=== PATIENT | female | born 1995 | race Caucasian/White ===

== ENCOUNTER → 2022-11-24 10:00 | Outpatient (CLI) | payer OTHER, SELFPAY ==
[2022-11-24 11:57] LABS: Basophils % 0.3 % (0.1-2.0); Eosinophils # 0.1 K/mm3 (0.0-0.4); Eosinophils % 1.2 % (0.1-12.0); Hematocrit 40.7 % (37.0-47.0); Hemoglobin 13.1 g/dL (12.2-16.2); Lymphocytes % 31.2 % (10-50); Mean Corpuscular HGB Conc 32.2 g/dL (31.8-35.4); Mean Corpuscular Hemoglobin 30.9 pg (27.0-31.2); Mean Platelet Volume 8.6 fl (7.4-10.4); Monocytes # 0.5 K/mm3 (0.1-1.0); Monocytes % 8.4 % (1.7-9.3); Neutrophils # 3.8 K/mm3 (1.8-7.8); Platelet Count 323 K/mm3 (142-424); Red Blood Count 4.24 M/mm3 (4.20-5.40); Red Cell Distribution Width 12.9 % (11.5-17.5); White Blood Count 6.4 K/mm3 (4.8-10.8)
[2022-11-24 12:38] LABS: Alanine Aminotransferase 19 U/L (12-78); Albumin Level 4.2 g/dl (3.5-5.0); Albumin/Globulin Ratio 1.5 (1.1-1.8); Alkaline Phosphatase 82 U/L (38-126); Anion Gap 13.6 mEq/L (5-15); Aspartate Amino Transferase 22 U/L (14-36); Bilirubin,Total 0.3 mg/dl (0.2-1.3); Blood Urea Nitrogen 14 mg/dl (7-17); Calcium 9.4 mg/dl (8.4-10.2); Carbon Dioxide 28 mmol/L (22.0-30.0); Chloride 102 mmol/L (98-107); Chol/HDL Ratio 2.8 (1-3.5); Cholesterol 135 mg/dl (140-200); Estimated Glomerular Filt Rate 100 ml/min (>60); GFR (African American) 121 ML/MIN (>60); Globulin 2.8 g/dL (1.3-3.2); Glucose 79 mg/dl (74-100); HDL Cholesterol 48 mg/dl (40-60); Potassium 4.6 mmoL/L (3.5-5.1); Sodium 139 mmol/L (136-145); Triglycerides 91 mg/dl (30-150); VLDL Cholesterol 18 mg/dL (0-40)
[2022-11-24 12:49] LABS: Direct LDL Cholesterol 59.22 mg/dL (100-129)
[2022-11-24 12:55] LABS: 25-OH Vitamin D, Total 33.5 ng/mL (30-100)
[2022-11-24 13:08] LABS: Thyroid Stimulating Hormone 2.28 uIU/mL (0.465-4.68)
[2022-11-24 13:26] LABS: Vitamin B12 320 pg/mL (239-931)
== END ==
PROVIDERS: PCP Physician Assistant; Visit Provider Physician Assistant
DX: Z90.3 Acquired absence of stomach [part of] (principal); E66.9 Obesity, unspecified; Z68.34 Body mass index [BMI] 34.0-34.9, adult; Z79.899 Other long term (current) drug therapy
CPT/HCPCS: 80053; 80061; 82306; 82607; 84443; 85025

== ENCOUNTER 2023-03-01 15:28 | Emergency (ER) | payer BC, SELFPAY ==
[2023-03-01 15:33] VITALS: BP 136/75; PULSE 98; RESP 21; TEMP 36.8; O2SAT 100; BMI 33.3
--- NOTE | 2023-03-01 16:14 | PC.NURSE ---
paged Dr Madyson Lizama
--- NOTE | 2023-03-01 16:15 | PC.NURSE ---
Dr Lizama speaking with Dr John Lizama
--- NOTE | 2023-03-01 16:22 | HMH.EDGENADL ---
Discharge Plan Disposition Patient Disposition: Home, Self-Care Chief Complaint: Urogenital-Female Prescriptions Prescriptions: No Action No Known Home Medications bupropion HCl [Wellbutrin XL] 150 mg tablet extended release 24 hr 150 mg PO DAILY Qty: 30 2RF metformin 500 mg tablet extended release 24 hr 500 mg PO DAILY Qty: 30 2RF Referrals Follow up/Referrals: Ivonne Diez PA [Primary Care Provider] - See instructions Activity Restrictions/Add. Instructions Additional Instructions/Restrictions: Call your family doctor to establish care for this visit to the emergency department and schedule follow-up within 48 hours to ensure improvement. If you have any worsening of your condition or any other concerning signs or symptoms, return to the emergency department or your primary care doctor for further evaluation. Clinical Impressions Clinical Impression: Vaginal laceration Qualifiers: Vaginal laceration type: non-obstetric Perineal laceration presence: without perineal laceration Encounter type: initial encounter Foreign body presence: without foreign body Qualified Code(s): S31.41XA - Laceration without foreign body of vagina and vulva, initial encounter Instructions Patient Instructions: DI for Urinary Tract Infection (UTI), DI for Urinary Tract Infection in Children Discharge ED Provider: Luis Hutchins General Adult HPI General Chief complaint: Urogenital-Female Stated complaint: vaginal issue Time Seen by Provider: 03/01/23 15:35 History of Present Illness HPI narrative: 27-year-old female no relevant medical history presenting with vaginal laceration. Patient states that she was having intercourse on the evening of 02/28, sustained a laceration. It was bleeding throughout the day today, so called OB. OB stated they are able to see her in the office in the next 1 to 2 days, but patient became worried about it and came to the emergency department. Related Data Home Medications Medication Instructions Recorded Confirmed No Known Home Medications 02/25/23 02/25/23 Previous Rx's Medication Instructions Recorded bupropion HCl 150 mg 24 hr tablet, 150 mg PO DAILY #30 tabs 02/25/23 extended release (Wellbutrin XL) metformin 500 mg tablet,extended 500 mg PO DAILY #30 tabs 02/27/23 release 24 hr Allergies Allergy/AdvReac Type Severity Reaction Status Date / Time amoxicillin Allergy Anaphylaxis Verified 02/25/23 08:49 [facility] Disclaimer: The information contained in this section may have been updated after the patient was seen, as this information can be updated by other users. Medical History (Updated 03/01/23 @ 17:39 by Luis Hutchins MD) Anxiety and depression PCOS (polycystic ovarian syndrome) Surgical History (Updated 02/25/23 @ 12:23 by RUSH Archibald) H/O gastric sleeve Hx of appendectomy Hx of cholecystectomy Family History Brother Adopted Mother Anemia Diabetes Hyperlipidemia Hypertension Father Substance abuse Thyroid disorder Sister Substance abuse Father Substance abuse Family/Other Substance abuse Grandmother Diabetes FHx: mental illness Other Coronary artery disease Social History Smoking Status: Never smoker alcohol intake: never current occupational status: employed Travel in the last 8 weeks: None ROS Obtained: Yes All systems reviewed & no additional complaints except as documented Physical Exam General General appearance: alert and in no apparent distress Head Head exam: atraumatic and normocephalic Eye Eye exam: Present normal appearance, PERRL and EOMI ENT ENT exam: Present mucous membranes moist Neck Neck exam: Present normal inspection, full ROM and trachea midline Respiratory Respiratory exam: Absent respiratory distress, wheezes, stridor, accessory muscle use or p
[2023-03-01 16:30] LABS: Microscopic, Urine URINE MICROSCOPIC (MICROSCOPIC)
[2023-03-01 16:36] LABS: Appearance,Urine CLEAR (Clear); Blood, Urine 3+ (Negative); Color,Urine YELLOW (Yellow); Glucose,Urine (UA) Negative (Negative); Ketones,Urine TRACE (Negative); Leukocyte Esterase,Urine Negative (Negative); Nitrate,Urine Negative (Negative); PH,Urine 5.5 (5.0-8.5); Protein,Urine TRACE (Negative); Specific Gravity, Urine >= 1.030 (1.005-1.030); Urobilinogen,Urine 0.2 EU/dl (0.2)
[2023-03-01 16:40] LABS: Urine Pregnancy, HCG Qual. Negative (Negative)
[2023-03-01 16:43] LABS: Bilirubin,Urine 1+ (Negative)
[2023-03-01 17:00] LABS: Bacteria,Urine Trace /lpf
[2023-03-01 17:59] VITALS: BP 128/75; PULSE 90; RESP 17; TEMP 36.8; O2SAT 99
== END 2023-03-01 18:03 | disposition home or self-care (01) ==
PROVIDERS: Emergency Provider Emergency Medicine; PCP Physician Assistant
DX: S31.41XA Laceration without foreign body of vagina and vulva, initial encounter (principal); E28.2 Polycystic ovarian syndrome; X58.XXXA Exposure to other specified factors, initial encounter
CPT/HCPCS: 12002; 81001; 81025; 99283

== ENCOUNTER 2023-04-18 10:26 | Outpatient (CLI) | payer OTHER, BC, SELFPAY ==
[2023-04-18 15:42] LABS: HCG,Quantitative 416 mIU/ml (0-5.42)
[2023-04-19 08:12] LABS: Progesterone 19.7 ng/mL (.)
== END 2023-04-18 23:59 ==
PROVIDERS: PCP Physician Assistant; Visit Provider Obstetrics & Gynecology
DX: N92.6 Irregular menstruation, unspecified (principal); Z32.00 Encounter for pregnancy test, result unknown
CPT/HCPCS: 36415; 84144; 84702

== ENCOUNTER 2023-05-01 18:39 | Emergency (ER) | payer OTHER, BC, SELFPAY ==
[2023-05-01 18:55] VITALS: BP 128/65; PULSE 75; RESP 20; TEMP 36.9; O2SAT 100; BMI 34.8
--- NOTE | 2023-05-01 19:08 | ED_ITS ---
Discharge Plan Disposition Patient Disposition: Home, Self-Care Condition: Good Referrals Follow up/Referrals: Ivonne Diez PA [Primary Care Provider] - See instructions Activity Restrictions/Add. Instructions Additional Instructions/Restrictions: Follow up with your OBGYN Follow up with your Family Doctor if needed Straight to ER if any life threatening symptoms Clinical Impressions Clinical Impression: UTI symptoms Discharge ED Provider: Susy Evans [facility] HPI General Stated complaint: 6 weeks , Frequent urination,can't empty Mode of Arrival: Ambulatory Source of Information: Patient Limitations: No Limitations Time Seen by Provider: 05/01/23 19:08 Description of Symptoms (Recalled from Triage Doc. by RN): PATIENT C/O URINARY FREQUENCY, BODY ACHES, FEELING TIRED, AND LOWER BACK PAIN X 2 DAYS HEENT Symptoms (Recalled from RN notes): No Resp Symptoms (Recalled from RN notes): No Skin Symptoms (Recalled from RN notes): No MS Symptoms (Recalled from RN notes): No Functional Status (Recalled from RN notes): WNL History of Present Illness Provider Complaint: Patient states that she thinks she may have a UTI States that she has been having urinary urgency and frequency, achy like feeling on and off in her lower back States that she is 6wks OB Denies spotting States today she has had a little nausea but thinks that may be some morning sickness starting Related Data Allergies Allergy/AdvReac Type Severity Reaction Status Date / Time amoxicillin Allergy Anaphylaxis Verified 03/18/23 08:23 Worker's Comp Is this a Worker's Comp case?: No [facility] Dis[facility]: The information contained in this section may have been updated after the patient was seen, as this information can be updated by other users. Medical History (Updated 05/01/23 @ 19:15 by Susy Evans APRN) Anxiety and depression PCOS (polycystic ovarian syndrome) Vaginal odor Surgical History H/O gastric sleeve Hx of appendectomy Hx of cholecystectomy Family History Brother Adopted Mother Anemia Diabetes Hyperlipidemia Hypertension Father Substance abuse Thyroid disorder Sister Substance abuse Father Substance abuse Family/Other Substance abuse Grandmother Diabetes FHx: mental illness Other Coronary artery disease Social History Smoking Status: Never smoker alcohol intake: never current occupational status: employed Travel in the last 8 weeks: None ROS Obtained: Yes All systems reviewed & no additional complaints except as documented and Yes Systems reviewed as appropriate & no additional complaints except as documented Constitutional Constitutional: Reports system reviewed and no additional complaints, except as documented, Reports as per HPI and Denies fever(s) ENT Ears, Nose, Mouth, and Throat: Reports system reviewed and no additional complaints, except as documented and Reports as per HPI Cardiovascular Cardiovascular: Reports system reviewed and no additional complaints, except as documented and Reports as per HPI Respiratory Respiratory: Reports system reviewed and no additional complaints, except as documented and Reports as per HPI Gastrointestinal Gastrointestingal: Reports system reviewed and no additional complaints, except as documented, as per HPI and nausea; Denies abdominal pain, cramping or vomiting Genitourinary Female Genitourinary: Reports system reviewed and no additional complaints, except as documented, Reports as per HPI, Reports urinary frequency, Reports urinary urgency and Reports other (denies spotting) Musculoskeletal Musculoskeletal: Reports system reviewed and no additional complaints, except as documented, Reports as per HPI and Reports other (achy like feeling on and off in her lower back x 2 days ) Physical Exam General General appearance: alert and in no apparent distress ENT ENT exam: Present mucous membranes moist Respiratory Respiratory exam: Present normal lung sounds bilaterally; Absent respiratory distress or wheezes Cardiovascular Cardiovascular exam: Present regular rate, normal rhythm and normal heart sounds Back Exam Back 1 view image: 1. reports achy like feeling on and off for 2 days denies radiation of pain Denies loss of control of bowel or bladder Neurological Exam Neurological exam: Present alert, oriented X3 and normal gait Medical Decision Making Hero Inquiry Pt receiving controlled substance: No Hero was queried for this patient: No Vital Signs: 05/01/23 18:55 Temperature 98.4 F Temperature Source Oral Pulse Rate [Left Brachial] 75 Respiratory Rate 20 Blood Pressure [Left Arm] 128/65 Blood Pressure Mean [Left Arm] 86 Blood Pressure Source [Left Arm] Automatic Cuff Blood Pressure Position [Left Arm] Sitting 02 Sat by Pulse Oximetry 100 Oxygen Delivery Method Room Air Lab Data Lab results reviewed: Yes I reviewed the patient's lab results.
[2023-05-01 19:13] LABS: Apearance,Urine Clear (Clear); Bilirubin,Urine Negative (Negative); Blood, Urine Negative (Negative); Color,Urine Yellow (Yellow); Glucose,Urine (UA) Negative (Negative); Ketones,Urine Negative (Negative); PH,Urine 5.5 (5.0-8.5); Protein,Urine Negative (Negative); Specific Gravity, Urine 1.025 (1.005-1.030); UTC Leukocyte Esterase,Urine Negative (Negative); UTC Nitrate,Urine Negative (Negative); Urobilinogen,Urine 0.2 EU/dl (0.2)
[2023-05-01 19:19] VITALS: BP 128/65; PULSE 75; RESP 20; TEMP 36.9; O2SAT 100
== END 2023-05-01 19:26 | disposition home or self-care (01) ==
PROVIDERS: Emergency Provider Nurse Practitioner; PCP Physician Assistant
DX: O26.891 Other specified pregnancy related conditions, first trimester (principal); R35.0 Frequency of micturition; R39.15 Urgency of urination; M54.59 Other low back pain; Z3A.01 Less than 8 weeks gestation of pregnancy
CPT/HCPCS: 81003; 99203; 99212; G0463

== ENCOUNTER 2023-05-15 09:38 | Outpatient (CLI) | payer OTHER, BC, SELFPAY ==
[2023-05-15 09:57] LABS: Basophils # 0.1 K/mm3 (0-0.2); Basophils % 0.6 % (0.1-2.0); Eosinophils # 0.1 K/mm3 (0.0-0.4); Eosinophils % 0.8 % (0.1-12.0); Hematocrit 36.3 % (37.0-47.0); Hemoglobin 12.6 g/dL (12.2-16.2); Lymphocytes % 22.9 % (10-50); Mean Corpuscular HGB Conc 34.8 g/dL (31.8-35.4); Mean Corpuscular Hemoglobin 33.4 pg (27.0-31.2); Mean Corpuscular Volume 95.9 fl (81-99); Mean Platelet Volume 8.2 fl (7.4-10.4); Monocytes # 0.5 K/mm3 (0.1-1.0); Monocytes % 5.4 % (1.7-9.3); Neutrophils % 70.2 % (37.0-80.0); Platelet Count 328 K/mm3 (142-424); Red Blood Count 3.78 M/mm3 (4.20-5.40); Red Cell Distribution Width 13.7 % (11.5-17.5); White Blood Count 8.5 K/mm3 (4.8-10.8)
[2023-05-16 08:20] LABS: HIV Screen 4th Generation wRfx Non Reactive (Non Reactive)
[2023-05-16 11:50] LABS: Rapid Plasma Reagin Ab Titer Non Reactive titer (NonRea<1:1); Rubella Antibodies, IgG 0.97 index (Immune >0.99)
[2023-05-19 10:28] LABS: Hepatitis B Surface Antigen Negative; Hepatitis C Antibody Non Reactive
== END 2023-05-15 23:59 ==
PROVIDERS: PCP Physician Assistant; Visit Provider Obstetrics & Gynecology
DX: O36.80X0 Pregnancy with inconclusive fetal viability, not applicable or unspecified (principal); O26.891 Other specified pregnancy related conditions, first trimester; Z3A.08 8 weeks gestation of pregnancy
CPT/HCPCS: 36415; 85025; 86593; 86703; 86762; 86850; 87086; 87340; 87380; G0432

== ENCOUNTER 2023-07-13 20:02 | Emergency (ER) | payer BC, SELFPAY ==
[2023-07-13 20:04] VITALS: BP 125/76; PULSE 90; RESP 16; TEMP 36.9; O2SAT 99; BMI 34.8
--- NOTE | 2023-07-13 20:05 | ED_ITS ---
Discharge Plan Disposition Patient Disposition: Left Against Medical Advice Prescriptions Prescriptions: No Action Classic 28 mg iron- 800 mcg tablet 1 tab PO DAILY Referrals Follow up/Referrals: Ivonne Diez PA [Primary Care Provider] - See instructions Clinical Impressions Clinical Impression: Left against medical advice Instructions Patient Instructions: DI for Acute Abdominal Pain Discharge ED Provider: Cecil Niño General Adult HPI <RUSH Longoria - Last Filed: 07/14/23 14:07> General Chief complaint: Abdominal Pain Stated complaint: 16wks antipartum lower abd/back cramping Time Seen by Provider: 07/13/23 20:04 History of Present Illness HPI narrative: She presents for evaluation of abdominal cramping. Patient is 16 weeks . Patient also reports that today that she went to [employer] and was loading large pavers by herself. She did not experience any trauma or notice any injury at the time. However at some point later today she has began having cramping on the right side and right lower quadrant. She denies nausea vomiting diarrhea fever chills hemoptysis hematochezia melena hematemesis or vaginal spotting. Related Data Home Medications Medication Instructions Recorded Confirmed vits no.126-ferrous fum 1 tab PO DAILY 05/15/23 07/10/23 28 mg iron-folic acid 800 mcg tablet (Classic ) Allergies Allergy/AdvReac Type Severity Reaction Status Date / Time amoxicillin Allergy Anaphylaxis Verified 07/10/23 09:04 PFSH <RUSH Longoria - Last Filed: 07/14/23 14:07> [facility] Disclaimer: The information contained in this section may have been updated after the patient was seen, as this information can be updated by other users. Medical History Rubella non-immune status, antepartum GBS bacteriuria Initial urine culture positive for GBS. She will need abx in labor regardless of RV swab Nausea and vomiting during Constipation during Vaginal odor PCOS (polycystic ovarian syndrome) Anxiety and depression Surgical History Hx of cholecystectomy Hx of appendectomy H/O gastric sleeve Family History Brother Adopted Mother Anemia Diabetes Hyperlipidemia Hypertension Father Substance abuse Thyroid disorder Sister Substance abuse Father Substance abuse Family/Other Substance abuse Grandmother Diabetes FHx: mental illness Other Coronary artery disease Social History Smoking Status: Never smoker alcohol intake: never current occupational status: employed Travel in the last 8 weeks: None <RUSH Longoria - Last Filed: 07/14/23 14:07> ROS Obtained: Yes Systems reviewed as appropriate & no additional complaints except as documented Physical Exam <RUSH Longoria - Last Filed: 07/14/23 14:07> General General appearance: alert and in no apparent distress Respiratory Respiratory exam: Present normal lung sounds bilaterally Cardiovascular Cardiovascular exam: Present regular rate and normal rhythm Abdominal Exam Abdominal exam: Present soft, tenderness (Patient is mildly tender to palpation in the right flank right upper and lower quadrants but no rebound or guarding no rigidity.) and normal bowel sounds Extremities Exam Extremities exam: Present normal inspection and full ROM Back Exam Back exam: Present normal inspection, full ROM and tenderness (Tender in the right-sided paraspinal musculature without deformity or neuropathic or radicular signs) Neurological Exam Neurological exam: Present alert and oriented X3 Medical Decision Making <RUSH Longoria - Last Filed: 07/14/23 14:07> Medical Records Medical records reviewed: Yes I reviewed the patient's medical records. Hero Inquiry Pt receiving controlled substance: No Vital Signs: 07/13/23 20:04 07/13/23 21:20 Temperature 98.4 F 98.4 F Temperature Source Oral Oral Pulse Rate 81 Pulse Rate [Right] 90 Respiratory Rate 16 16 Blood Pressure 119/81 Blood Pressure [Right Arm] 125/76 Blood Pressure Mean [Right Arm] 92 02 Sat by Pulse Oximetry 99 Oxygen Delivery Method Room Air Lab Data Lab results reviewed: Yes I reviewed the patient's lab results. Lab Results 07/13/23 20:45: Urine Color Yellow, Urine Appearance Clear, Urine pH 6.0, Ur Specific [place] 1.020, Urine Protein Negative, Urine Glucose (UA) Negative, Urine Ketones Negative, Urine Blood Negative, Urine Nitrate Negative, Urine Bilirubin Negative, Urine Urobilinogen 0.2, Ur Leukocyte Esterase Negative, Urine RBC None, Urine WBC Occasional, Ur Squamous Epith Cells 5-10, Urine Bacteria None Orders (Tests/Meds): ED MEDICATIONS Discontinued Medications Generic Name Dose Route Start Last Admin Trade Name Eduin PRN Reason Stop Dose Admin Acetaminophen 1,000 mg 07/13/23 20:21 Acetaminophen 1,000mg/100ml Vial IV 07/13/23 20:22 ONCE ONE Lactated Ringer's 1,000 mls @ 999 mls/hr 07/13/23 20:21 Lactated Ringer's 1000 Ml Bag IV 07/13/23 21:21 .Q1H1M ONE ORDERS Category Date Time Status UA [Urinalysis and Microscopic] Stat Lab 07/13/23 20:45 Completed Medical Decision Narrative: In summary patient is a 28-year-old female 16 weeks who presents to the emergency department for evaluation of abdominal pain. Patient is hemodynamically stable upon arrival, afebrile. Physical exam is remarkable for tenderness to palpation in both the right flank and right upper and lower quadrants however there is no peritoneal signs. Differential diagnosis includes muscle spasm versus muscle strain versus cholelithiasis versus acute appendicitis versus gastroenteritis versus kidney stone versus urinary tract infection versus pyelonephritis versus possible gynecological cramping. Initial workup will be conducted with hematologic labs urinalysis hCG. Initial interventions include Tylenol and fluid bolus. Unfortunately patient left AMA before her initial workup and treatments were initiated due to social issues. I did have an interactive conversation with the patient about the risks of leaving AMA along with conditions to return. Patient verbalized understanding and agreement and elected to leave AMA regardless. She plans to follow-up with her marketing production manager in the morning. <Cecil Niño, DO - Last Filed: 07/18/23 09:52> Vital Signs: 07/13/23 20:04 07/13/23 21:20 Temperature 98.4 F 98.4 F Temperature Source Oral Oral Pulse Rate 81 Pulse Rate [Right] 90 Respiratory Rate 16 16 Blood Pressure 119/81 Blood Pressure [Right Arm] 125/76 Blood Pressure Mean [Right Arm] 92 02 Sat by Pulse Oximetry 99 Oxygen Delivery Method Room Air Lab Data Lab Results 07/13/23 20:45: Urine Color Yellow, Urine Appearance Clear, Urine pH 6.0, Ur Specific [place] 1.020, Urine Protein Negative, Urine Glucose (UA) Negative, Urine Ketones Negative, Urine Blood Negative, Urine Nitrate Negative, Urine Bilirubin Negative, Urine Urobilinogen 0.2, Ur Leukocyte Esterase Negative, Urine RBC None, Urine WBC Occasional, Ur Squamous Epith Cells 5-10, Urine Bacteria None Orders (Tests/Meds): ED MEDICATIONS Discontinued Medications Generic Name Dose Route Start Last Admin Trade Name Eduin PRN Reason Stop Dose Admin Acetaminophen 1,000 mg 07/13/23 20:21 Acetaminophen 1,000mg/100ml Vial IV 07/13/23 20:22 ONCE ONE Lactated Ringer's 1,000 mls @ 999 mls/hr 07/13/23 20:21 Lactated Ringer's 1000 Ml Bag IV 07/13/23 21:21 .Q1H1M ONE ORDERS Category Date Time Status UA [Urinalysis and Microscopic] Stat Lab 07/13/23 20:45 Completed Medical Decision Narrative: In summary patient is a 28-year-old female 16 weeks who presents to the emergency department for evaluation of abdominal pain. Patient is hemodynamically stable upon arrival, afebrile. Physical exam is remarkable for tenderness to palpation in both the right flank and right upper and lower quadrants however there is no peritoneal signs. Differential diagnosis includes muscle spasm versus muscle strain versus cholelithiasis versus acute appendicitis versus gastroenteritis versus kidney stone versus urinary tract infection versus pyelonephritis versus possible gynecological cramping. Initial workup will be conducted with hematologic labs urinalysis hCG. Initial interventions include Tylenol and fluid bolus. Unfortunately patient left AMA before her initial workup and treatments were initiated due to social issues. I did have an interactive conversation with the patient about the risks of leaving AMA along with conditions to return. Patient verbalized understanding and agreement and elected to leave AMA regardless. She plans to follow-up with her marketing production manager in the morning. I was consulted by the AARON, and we discussed the complexity of the problems being addressed. I approved the treatment and management plan for this patient's care in the Emergency Department, thus performing a substantive portion of the medical decision making. Cecil Niño, DO Critical Care <RUSH Longoria - Last Filed: 07/14/23 14:07> Critical Care Time Critical Care Time: No
[2023-07-13 21:20] VITALS: BP 119/81; PULSE 81; RESP 16; TEMP 36.9; O2SAT 99
[2023-07-13 21:21] LABS: Microscopic, Urine URINE MICROSCOPIC (MICROSCOPIC)
[2023-07-13 21:27] LABS: Appearance,Urine CLEAR (Clear); Bilirubin,Urine Negative (Negative); Blood, Urine Negative (Negative); Color,Urine YELLOW (Yellow); Glucose,Urine (UA) Negative (Negative); Ketones,Urine Negative (Negative); Leukocyte Esterase,Urine Negative (Negative); Nitrate,Urine Negative (Negative); Protein,Urine Negative (Negative); Urobilinogen,Urine 0.2 EU/dl (0.2)
[2023-07-13 22:05] LABS: WBC,Urine Occasional #/hpf (0-3)
== END 2023-07-13 21:21 | disposition left against medical advice (07) ==
PROVIDERS: Physician Assistant; Emergency Provider Emergency Medicine; PCP Physician Assistant
DX: O26.892 Other specified pregnancy related conditions, second trimester (principal); R10.819 Abdominal tenderness, unspecified site; Z3A.16 16 weeks gestation of pregnancy
CPT/HCPCS: 81001; 96361; 96374; 99281; 99284

== ENCOUNTER 2023-08-06 15:18 | Outpatient (CLI) | payer BC, SELFPAY ==
--- NOTE | 2023-08-06 15:18 | US_ITS ---
PROCEDURE: US OB /MATERNAL DETAIL CLINICAL INDICATION: 20 week OB Complete -Anatomy Scan COMPARISON: No exams were available for comparison FINDINGS: Transabdominal sonographic images of the pelvis were obtained. From her established due date she is 19 weeks 6 days. Single viable intrauterine gestation. Breech position. Placenta: Anteriorplacenta grade 1. There is an average amount of fluid. The cervix appears satisfactory. Closed and measuring 2.9 cm in length. Complete survey performed and was unremarkable on the submitted images as in PACS. No discrete anomalies identified on survey imaging by technologist. Active fetus. Three-vessel cord with satisfactory umbilical cord insertion. 4- chamber heart noted. Situs, aortic arch, LVOT, RVOT, three-vessel view appear normal. Survey of brain & ventricles Unremarkable. Cerebellum, thalamus, choroid plexus, cisterna magna appear normal. Face and neck survey unremarkable. Profile, nasion, lips and nose appeared normal. Diaphragm and chest views unremarkable. Abdomen: Both kidneys noted and unremarkable. Stomach and bladder noted and satisfactory. Spine: Difficult examination due to position. Survey of the spine satisfactory with no anomalies identified nor imaged. Cervical, thoracic, lower spine appear normal. Both arms and legs noted. Amniotic Fluid: Adequate. Measurements: Average ultrasound age 19weeks 6days. Estimated due date by ultrasound age 1012/25/2023. Estimated weight 322g BPD = 19weeks 3days HC = 19weeks 3days AC = 20weeks 1day FL = 20weeks 0 days Growth Percentile= 50 Heart Rate = 152bpm Cerebellum = 20weeks 0 days Humerus = 19weeks 6days HC/AC is 1.13 FL/BPD is 0.73 FL/AC is 0.22 IMPRESSION: 1. Viable fetus in the breech presentation with an anterior placenta grade 1. 2. The fluid is within normal limits. 3. Anatomical scan appears normal. Would suggest repeat spine views in 2 weeks due to position. 4. biometry is consistent with a dates. Dictated by: Behzad Morales MD 08/06/2023 16:37 Behzad Morales MD in [place] 08/06/2023 16:37
== END 2023-08-06 23:59 | disposition home or self-care (01) ==
LOC: RAD 15:18
PROVIDERS: PCP Physician Assistant; Visit Provider Obstetrics & Gynecology
DX: O26.892 Other specified pregnancy related conditions, second trimester (principal); Z3A.20 20 weeks gestation of pregnancy; Z36.3 Encounter for antenatal screening for malformations
CPT/HCPCS: 76811

== ENCOUNTER 2023-08-24 14:23 | Outpatient (CLI) | payer BC, SELFPAY ==
--- NOTE | 2023-08-24 14:24 | US_ITS ---
PROCEDURE: US OB FOLLOW UP CLINICAL INDICATION: limited views of spine on anatomy ultrasound COMPARISON: US US OB /MATERNAL DETAIL from 08/06/2023 FINDINGS: Transabdominal sonographic images of the pelvis were obtained. The following parameters are obtained: From her established due date she is 22weeks 3days Viable fetus in the breech presentation with an anterior placenta grade 1. The cervix measures 3.8 cm. heart rate: 147bpm bpm. Amniotic fluid index: Appears normal, MVP 4.78 cm. No obvious anomalies evident. Stomach, bladder, kidneys, three-vessel cord, four chamber heart appear normal. Views of the spine were normal with normal appearing cervical, thoracic and lower spine. IMPRESSION: 1. Viable fetus in the breech presentation with an anterior placenta grade 1. 2. The fluid is within normal limits. MVP 4.78 cm. 3. Detailed views of the spine were seen and appear normal. 4. The rest of the limited anatomical scan appears normal. Dictated by: Behzad Morales MD 08/24/2023 19:02 Behzad Morales MD in [place] 08/24/2023 19:02
== END 2023-08-24 23:59 | disposition home or self-care (01) ==
LOC: RAD 14:24
PROVIDERS: PCP Physician Assistant; Visit Provider Obstetrics & Gynecology
DX: Z3A.22 22 weeks gestation of pregnancy; Z34.92 Encounter for supervision of normal pregnancy, unspecified, second trimester
CPT/HCPCS: 76816

== ENCOUNTER 2023-09-21 18:29 | Outpatient (CLI) | payer BC, SELFPAY ==
[2023-09-21 18:43] VITALS: BMI 37.1
[2023-09-21 18:47] LABS: Microscopic, Urine URINE MICROSCOPIC (MICROSCOPIC)
[2023-09-21 18:51] LABS: Appearance,Urine CLEAR (Clear); Bilirubin,Urine Negative (Negative); Blood, Urine Negative (Negative); Color,Urine YELLOW (Yellow); Glucose,Urine (UA) Negative (Negative); Ketones,Urine 1+ (Negative); Leukocyte Esterase,Urine Negative (Negative); Nitrate,Urine Negative (Negative); Protein,Urine Negative (Negative); Specific Gravity, Urine >= 1.030 (1.005-1.030); Urobilinogen,Urine 0.2 EU/dl (0.2)
[2023-09-21 19:00] VITALS: BP 125/68; PULSE 89; RESP 17; TEMP 36.9; O2SAT 100; BMI 37.1
[2023-09-21 19:04] LABS: Bacteria,Urine Trace /lpf
[2023-09-21 19:08] LABS: Amphetamine/Metha Screen,Urine Negative ng/ml (<1000); Benzodiazepines Screen,Urine Negative ng/ml (<200)
[2023-09-21 19:09] LABS: Barbiturates Screen,Urine Negative ng/ml (<200)
[2023-09-21 19:10] LABS: Cannabinoid Screen,Urine Negative ng/ml (<50); Cocaine Screen,Urine Negative ng/ml (<300)
[2023-09-21 19:11] LABS: Methadone Screen,Urine Negative ng/ml (<300)
[2023-09-21 19:12] LABS: Opiate Screen,Urine Negative ng/ml (<300)
[2023-09-21 19:13] LABS: Phencyclidine Screen,Urine Negative ng/ml (<25)
[2023-09-21] MEDS: LACTATED RINGERS 1000ML 1,000 ML 999 ML IV ×2 (19:23→20:55)
[2023-09-21 19:42] LABS: Basophils % 0.2 % (0.1-2.0); Eosinophils # 0.2 K/mm3 (0.0-0.4); Hematocrit 32.5 % (37.0-47.0); Lymphocytes # 2.1 K/mm3 (0.7-4.5); Lymphocytes % 21.7 % (10-50); Mean Corpuscular HGB Conc 33.8 g/dL (31.8-35.4); Mean Corpuscular Hemoglobin 31.7 pg (27.0-31.2); Mean Corpuscular Volume 93.9 fl (81-99); Mean Platelet Volume 8.2 fl (7.4-10.4); Monocytes # 0.6 K/mm3 (0.1-1.0); Monocytes % 5.8 % (1.7-9.3); Neutrophils # 6.7 K/mm3 (1.8-7.8); Neutrophils % 70.4 % (37.0-80.0); Platelet Count 329 K/mm3 (142-424); Red Blood Count 3.46 M/mm3 (4.20-5.40); Red Cell Distribution Width 13.6 % (11.5-17.5); White Blood Count 9.6 K/mm3 (4.8-10.8)
[2023-09-21 19:53] LABS: Alanine Aminotransferase 21 U/L (12-78); Albumin Level 3.4 g/dl (3.5-5.0); Albumin/Globulin Ratio 1.1 (1.1-1.8); Alkaline Phosphatase 81 U/L (38-126); Anion Gap 7.9 mEq/L (5-15); Aspartate Amino Transferase 24 U/L (14-36); Bilirubin,Total 0.4 mg/dl (0.2-1.3); Blood Urea Nitrogen 12 mg/dl (7-17); Carbon Dioxide 24 mmol/L (22.0-30.0); Chloride 105 mmol/L (98-107); Creatinine Clearance Estimated 273 mL/min (50-200); Estimated Glomerular Filt Rate 146 ml/min (>60); GFR (African American) 177 ML/MIN (>60); Globulin 3.1 g/dL (1.3-3.2); Glucose 85 mg/dl (74-100); Potassium 3.9 mmoL/L (3.5-5.1); Sodium 133 mmol/L (136-145); Total Protein,Serum 6.5 g/dl (6.3-8.2)
== END 2023-09-21 21:55 | disposition home or self-care (01) ==
LOC: OBOUT 18:31 → OB 18:35
PROVIDERS: PCP Physician Assistant; Visit Provider Obstetrics & Gynecology
DX: O26.892 Other specified pregnancy related conditions, second trimester (principal); Z3A.26 26 weeks gestation of pregnancy; R42 Dizziness and giddiness
CPT/HCPCS: 80053; 80307; 81001; 85025; G0463; J7120

== ENCOUNTER 2023-10-02 08:49 | Outpatient (CLI) | payer BC, SELFPAY ==
[2023-10-02 09:27] LABS: Basophils % 0.4 % (0.1-2.0); Eosinophils # 0.1 K/mm3 (0.0-0.4); Eosinophils % 0.9 % (0.1-12.0); Hemoglobin 10.9 g/dL (12.2-16.2); Lymphocytes # 1.4 K/mm3 (0.7-4.5); Lymphocytes % 21.2 % (10-50); Mean Corpuscular HGB Conc 36.4 g/dL (31.8-35.4); Mean Corpuscular Hemoglobin 34.5 pg (27.0-31.2); Mean Corpuscular Volume 94.9 fl (81-99); Mean Platelet Volume 8.2 fl (7.4-10.4); Monocytes # 0.4 K/mm3 (0.1-1.0); Monocytes % 6.4 % (1.7-9.3); Neutrophils # 4.8 K/mm3 (1.8-7.8); Neutrophils % 71.1 % (37.0-80.0); Platelet Count 308 K/mm3 (142-424); Red Blood Count 3.16 M/mm3 (4.20-5.40); Red Cell Distribution Width 13.6 % (11.5-17.5); White Blood Count 6.7 K/mm3 (4.8-10.8)
[2023-10-02 09:35] LABS: Glucose,Fasting 84 mg/dl (74-100)
[2023-10-02 11:40] LABS: Glucose 1 Hour 53 mg/dL (74-100)
== END 2023-10-02 23:59 | disposition home or self-care (01) ==
LOC: LAB 08:49
PROVIDERS: PCP Physician Assistant; Visit Provider Obstetrics & Gynecology
DX: Z34.90 Encounter for supervision of normal pregnancy, unspecified, unspecified trimester (principal)
CPT/HCPCS: 36415; 82951; 85025

== ENCOUNTER 2023-10-26 08:34 | Emergency (ER) | payer BC, SELFPAY ==
[2023-10-26 08:55] VITALS: BP 110/71; PULSE 79; RESP 20; TEMP 36.5; O2SAT 100; BMI 36.4
--- NOTE | 2023-10-26 09:17 | ED_ITS ---
Discharge Plan Disposition Patient Disposition: Home, Self-Care Condition: Good Prescriptions Prescriptions: No Action Classic 28 mg iron- 800 mcg tablet 1 tab PO DAILY bupropion HCl [Wellbutrin XL] 150 mg tablet extended release 24 hr 150 mg PO DAILY Qty: 30 2RF ondansetron 4 mg tablet,disintegrating 4 mg PO Q6H PRN (Reason: nausea and vomiting) Qty: 30 0RF Referrals Follow up/Referrals: Ivonne Diez PA [Primary Care Provider] - See instructions Activity Restrictions/Add. Instructions Additional Instructions/Restrictions: *Monitor Temp, Over the counter Motrin or Tylenol as directed/as needed Tylenol every 4 hours and Motrin every 6 hours (as long as your family doctor has told you that you can take it) for fever or pain. and straight to ER if unable to lower temp less than 101.0 after medication given *Warm salt water gargles may help to soothe the throat *Throat Lozenges? *Warm fluids like tea with honey may help to soothe the throat? *Sleep elevated *Humidifier/Vaporizer Your throat swab was sent for culture. Those results are typically sent to your primary care. Be sure to follow up in 2-3 days with your family doctor/primary care physician if no improvement so they can review those result and treat if necessary. If you don?t have a primary care doctor, I recommend you get one but in the mean time, you will have to return to a walk in clinic Follow up IMMEDIATELY for new or worsening symptoms or no Noticeable improvement over the next 48-72 hours. 911 for difficulty breathing or swallowing Clinical Impressions Clinical Impression: Viral upper respiratory infection Stand Alone Forms Stand Alone Forms: Work/School Release Instructions Patient Instructions: DI for Viral Upper Respiratory Infection -- Adult, Sore Throat Print Language Print Language: Barbadian Discharge ED Provider: Susy Evans [facility] General Stated complaint: sore throat, body aches, headache Mode of Arrival: Ambulatory Source of Information: Patient Limitations: No Limitations Time Seen by Provider: 10/26/23 09:17 Description of Symptoms (Recalled from Triage Doc. by RN): PATIENT C/O SORE THROAT, HEADACHE, BODY ACHES, LOW-GRADE FEVER, HEAD AND CHEST CONGESTION, AND EAR PAIN THAT STARTED YESTERDAY HEENT Symptoms (Recalled from RN notes): Yes Resp Symptoms (Recalled from RN notes): Yes Skin Symptoms (Recalled from RN notes): No MS Symptoms (Recalled from RN notes): No Functional Status (Recalled from RN notes): WNL History of Present Illness Provider Complaint: Patient states that she is 31wks OB States that she started feeling bad yesterday with body aches, sore throat, headache, chills itchy like feeling in her ears and nasal congestion States that she woke up in the middle of night feeling like she was swallowing glass worried that she may have strep throat or flu so she came in to get tested Related Data Home Medications ?Medication ?Instructions ?Recorded ?Confirmed vits no.126-ferrous fum 1 tab PO DAILY 05/15/23 10/19/23 28 mg iron-folic acid 800 mcg tablet (Classic ) Allergies Allergy/AdvReac Type Severity Reaction Status Date / Time amoxicillin Allergy Anaphylaxis Verified 10/19/23 16:06 Worker's Comp Is this a Worker's Comp case?: No PFSH PFS Disclaimer: The information contained in this section may have been updated after the patient was seen, as this information can be updated by other users. Medical History (Updated 10/26/23 @ 09:22 by Susy Evans APRN) Anemia affecting Depression affecting Vaginal discharge during Rubella non-immune status, antepartum GBS bacteriuria Nausea and vomiting during Constipation during PCOS (polycystic ovarian syndrome) Anxiety and depression Surgical History Hx of cholecystectomy Hx of appendectomy H/O gastric sleeve Family History Brother Adopted Mother Anemia Diabetes Hyperlipidemia Hypertension Father Substance abuse Thyroid disorder Sister Substance abuse Father Substance abuse Family/Other Substance abuse Grandmother Diabetes FHx: mental illness Other Coronary artery disease Social History Smoking Status: Never smoker alcohol intake: never current occupational status: employed Travel in the last 8 weeks: None ROS Obtained: Yes All systems reviewed & no additional complaints except as documented and Yes Systems reviewed as appropriate & no additional complaints except as documented Constitutional Constitutional: Reports system reviewed and no additional complaints, except as documented, Reports as per HPI, Reports body ache, Reports chills and Reports headache(s) ENT Ears, Nose, Mouth, and Throat: Reports system reviewed and no additional complaints, except as documented, Reports as per HPI, Reports otalgia, Reports headache(s), Reports nasal congestion, Reports nasal discharge and Reports sore throat Cardiovascular Cardiovascular: Reports system reviewed and no additional complaints, except as documented and Reports as per HPI Respiratory Respiratory: Reports system reviewed and no additional complaints, except as documented and Reports as per HPI Gastrointestinal Gastrointestingal: Reports system reviewed and no additional complaints, except as documented and as per HPI Neurologic Neurologic: Reports headache(s) Physical Exam General General appearance: alert and in no apparent distress ENT ENT exam: Present mucous membranes moist Expanded ENT Exam TM/Canal exam: Bilateral TM: bulging (clear) Throat exam: Present tonsillar erythema (mild) Chest Chest inspection: Present normal inspection and symmetric chest wall rise Respiratory Respiratory exam: Present normal lung sounds bilaterally; Absent respiratory distress or wheezes Cardiovascular Cardiovascular exam: Present regular rate, normal rhythm and normal heart sounds Neurological Exam Neurological exam: Present alert, oriented X3 and normal gait Medical Decision Making Hero Inquiry Pt receiving controlled substance: No Hero was queried for this patient: No Vital Signs: 10/26/23 08:55 Temperature 97.7 F Temperature Source Oral Pulse Rate [Left Brachial] 79 Respiratory Rate 20 Blood Pressure [Left Arm] 110/71 Blood Pressure Mean [Left Arm] 84 Blood Pressure Source [Left Arm] Automatic Cuff Blood Pressure Position [Left Arm] Sitting 02 Sat by Pulse Oximetry 100 Oxygen Delivery Method Room Air Lab Data Lab results reviewed: Yes I reviewed the patient's lab results.
[2023-10-26 09:19] LABS: UTC Strep Screen (Rapid) Negative (Negative)
[2023-10-26 09:20] LABS: UTC Influenza A Antigen Negative (Negative); UTC Influenza B Antigen Negative (Negative)
[2023-10-26 09:28] VITALS: BP 110/71; PULSE 79; RESP 20; TEMP 36.5; O2SAT 100
== END 2023-10-26 09:32 | disposition home or self-care (01) ==
PROVIDERS: Emergency Provider Nurse Practitioner; PCP Physician Assistant
DX: O26.893 Other specified pregnancy related conditions, third trimester (principal); R51.9 Headache, unspecified; R07.0 Pain in throat; M79.18 Myalgia, other site; R68.83 Chills (without fever); R09.81 Nasal congestion; Z3A.31 31 weeks gestation of pregnancy; F32.A Depression, unspecified; F41.9 Anxiety disorder, unspecified; E28.2 Polycystic ovarian syndrome
CPT/HCPCS: 87804; 87880; 99212; 99213; G0463

== ENCOUNTER 2023-10-26 16:00 | Outpatient (CLI) | payer BC, SELFPAY ==
[2023-10-26 16:55] LABS: Coronavirus 19, PCR Not Detected (NotDetected); Influenza A, PCR Not Detected (NotDetected); Influenza B, PCR Not Detected (NotDetected)
== END 2023-10-26 23:59 | disposition home or self-care (01) ==
LOC: LAB.DROPOF 10-27 15:17
PROVIDERS: PCP Physician Assistant; Visit Provider Physician Assistant
DX: J06.9 Acute upper respiratory infection, unspecified (principal)
CPT/HCPCS: 87636

== ENCOUNTER 2023-11-26 14:16 | Outpatient (CLI) | payer BC, SELFPAY ==
[2023-11-26 14:41] VITALS: BMI 36.3
[2023-11-26 14:48] VITALS: BP 133/78; PULSE 88; RESP 16; O2SAT 98; BMI 36.3
[2023-11-26 15:00] LABS: Fetal Membrane Rupture (Rapid) Negative (Negative)
== END 2023-11-26 15:46 | disposition home or self-care (01) ==
LOC: OBOUT 14:17 → OB 14:18
PROVIDERS: PCP Physician Assistant; Visit Provider Obstetrics & Gynecology
DX: O42.913 Preterm premature rupture of membranes, unspecified as to length of time between rupture and onset of labor, third trimester (principal); Z3A.35 35 weeks gestation of pregnancy
CPT/HCPCS: 84112; G0463

== ENCOUNTER 2023-12-02 07:44 | Inpatient (IN) | payer BC, SELFPAY ==
[2023-12-02 06:04] VITALS: BP 139/82; BP 158/93; PULSE 92; RESP 18; RESP 21; TEMP 36.8; O2SAT 100; BMI 36.6
[2023-12-02 06:38] LABS: Microscopic, Urine URINE MICROSCOPIC (MICROSCOPIC)
[2023-12-02 07:03] LABS: Appearance,Urine CLEAR (Clear); Bilirubin,Urine Negative (Negative); Blood, Urine 1+ (Negative); Color,Urine YELLOW (Yellow); Glucose,Urine (UA) Negative (Negative); Ketones,Urine Negative (Negative); Leukocyte Esterase,Urine 1+ (Negative); Nitrate,Urine Negative (Negative); PH,Urine 6.5 (5.0-8.5); Protein,Urine Negative (Negative); Specific Gravity, Urine <= 1.005 (1.005-1.030); Urobilinogen,Urine 0.2 EU/dl (0.2)
[2023-12-02 07:13] LABS: Fetal Membrane Rupture (Rapid) Positive (Negative)
[2023-12-02 07:24] VITALS: BP 126/82
[2023-12-02 07:28] LABS: RBC,Urine Occasional #/hpf (0-3); Squamous Epithelial Cell,Urine Occasional #/hpf (0-5); WBC,Urine Occasional #/hpf (0-3)
[2023-12-02] MEDS: VANCOMYCIN HCL 2,000 MG in 0.9 % SODIUM CHLORIDE 250 ML 125 MG IV ×2 (08:32→16:39)
[2023-12-02] MEDS: LACTATED RINGERS 1000ML 1,000 ML 500 ML IV (08:32)
[2023-12-02] MEDS: DEXTROSE 5%-LACTATED RINGERS 1,000 ML 125 ML IV ×2 (08:32→16:35)
[2023-12-02 08:33] LABS: Amphetamine/Metha Screen,Urine Negative ng/ml (<1000)
[2023-12-02 08:34] LABS: Barbiturates Screen,Urine Negative ng/ml (<200); Benzodiazepines Screen,Urine Negative ng/ml (<200)
--- NOTE | 2023-12-02 08:34 | P.CONPHA_ITS ---
Pharmacy Intervention Comments: MEDICATION RECONCILIATION COMPLETED ON PATIENT USING EXTERNAL FILL HISTORY FROM PHARMACY AND LIST FROM WEB COMMUNICATIONS SPECIALIST OFFICE. -GINNY TAPIAD
--- NOTE | 2023-12-02 08:34 | HMH.PHAINT1 ---
Pharmacy Intervention Comments: MEDICATION RECONCILIATION COMPLETED ON PATIENT USING EXTERNAL FILL HISTORY FROM PHARMACY AND LIST FROM SAFE EXPERT OFFICE. -GINNY TAPIAD
[2023-12-02 08:35] LABS: Cannabinoid Screen,Urine Negative ng/ml (<50)
[2023-12-02 08:36] LABS: Cocaine Screen,Urine Negative ng/ml (<300); Methadone Screen,Urine Negative ng/ml (<300)
[2023-12-02 08:37] LABS: Opiate Screen,Urine Negative ng/ml (<300)
[2023-12-02 08:38] LABS: Phencyclidine Screen,Urine Negative ng/ml (<25)
--- NOTE | 2023-12-02 08:50 | EXP.OB.APHP ---
OB - H&P: HPI Antepartum History of Present Illness Chief complaint: Decreased movement, contractions History of present illness: Ms Dalia Zayas is a 28 yo at 36w5d who presents to [facility] L&D with complaint of decreased movement this morning and continued tightening of her abdomen. She admits she had intercourse last night. Upon arrival to L&D cervix was 4/75/-2. She went to the bathroom to pee and started leaking fluid. Amnisure positive at 0653 this morning. She has had good care. complicated by maternal obestiy, anxiety/depression and anemia. She had GBS bactiuria on initial urine culture. History of Present Criteria for establishing EDC:: LMP confirmed by 1st trimester US care: good care Ultrasounds: normal mid trimester US Obstetrical complications: none Medical complications: none Labs Blood type: O (+) positive Rubella: nonimmune RPR/VDRL: nonreactive GBS status: positive HBsAG: negative PFSH PFSH Disclaimer: The information contained in this section may have been updated after the patient was seen, as this information can be updated by other users. Medical History (Updated 12/02/23 @ 13:08 by Tiffany Roberson DO) 36 weeks gestation of premature rupture of membranes Maternal obesity affecting , antepartum Heartburn during Anemia affecting Depression affecting Vaginal discharge during Rubella non-immune status, antepartum GBS bacteriuria Nausea and vomiting during Constipation during PCOS (polycystic ovarian syndrome) Anxiety and depression Surgical History Hx of cholecystectomy Hx of appendectomy H/O gastric sleeve Family History Brother Adopted Mother Anemia Diabetes Hyperlipidemia Hypertension Father Substance abuse Thyroid disorder Sister Substance abuse Father Substance abuse Family/Other Substance abuse Grandmother Diabetes FHx: mental illness Other Coronary artery disease Social History (Updated 12/02/23 @ 11:43 by Sophia Barroso CRNA) Smoking Status: Never smoker alcohol intake: never substance use type: denies use current occupational status: other Travel in the last 8 weeks: None Review of Systems Review of Systems Review of systems:: pertinent systems reviewed and negative unless documented below Meds Home Medications and Allergies Home Medications ?Medication ?Instructions ?Recorded ?Confirmed ?Type vits no.126-ferrous fum 1 tab PO DAILY 05/15/23 12/02/23 History 28 mg iron-folic acid 800 mcg tablet (Classic ) famotidine 20 mg tablet (Pepcid) 20 mg PO BID #60 tabs 11/19/23 12/02/23 Rx bupropion HCl 150 mg 24 hr tablet, 150 mg PO DAILY #90 tabs 11/25/23 12/02/23 Rx extended release (Wellbutrin XL) New Prescriptions to Start Prescriptions: Allergies Allergy/AdvReac Type Severity Reaction Status Date / Time amoxicillin Allergy Anaphylaxis Verified 11/27/23 15:55 OB - H&P: Exam Physical Exam Vital signs: Temp Pulse Resp BP Pulse Ox O2 Del Method 98.3 F 92 H 18 126/82 100 Room Air 12/02/23 06:04 12/02/23 06:04 12/02/23 06:04 12/02/23 07:24 12/02/23 06:04 12/02/23 06:04 Constitutional no acute distress and cooperative Routine HEENT Exam Head: Present normocephalic and atraumatic Eye: Absent conjunctivae pink ENT: Present mucous membranes moist Routine Neck Exam Present full ROM Routine Respiratory Exam Present CTA bilaterally and normal respiratory effort Routine Cardiovascular Exam Present RRR Routine Abdominal Exam Present soft (Gravid); Absent tenderness Routine Rectal Exam Patient deferred: visual exam Routine Exam External: Present normal urethra appearance; Absent erythema, tenderness, lesions or lacerations Routine Extremities Exam Present full ROM; Absent edema or calf tenderness Detailed Labor and Delivery Exam Dilation (cm): 4 Effacement (%): 75 station: -2 Consistency: soft Membranes: spontaneously ruptured Amniotic fluid: clear Baseline heart rate: 150 monitor accelerations: Present monitor decelerations: None halfway variability: Moderate (11-25) OB - Results Labs Labs: Urine 12/02/23 Range/Units 06:00 Urine Color Yellow (Yellow) Urine Appearance Clear (Clear) Urine pH 6.5 (5.0-8.5) Ur Specific [place] <= 1.005 (1.005-1.030) Urine Protein Negative (Negative) Urine Glucose (UA) Negative (Negative) OB - A/P Antepartum (1) premature rupture of membranes: Status: Acute (2) 36 weeks gestation of : Status: Acute (3) Maternal obesity affecting , antepartum: Status: Acute (4) Anemia affecting : Status: Acute (5) Depression affecting : Status: Acute (6) Rubella non-immune status, antepartum: Status: Acute (7) GBS bacteriuria: Problem details: Initial urine culture positive for GBS. She will need abx in labor regardless of RV swab Status: Acute Additional Plan Planning to breastfeed?: Yes Additional Information:: Admit to [facility] L&D for PPROM Augment with pitocin GBS bactiuria- will start Vancomycin for GBS prophylaxis. She has penicillin allergy and no sensitivies performed on urine culture Close monitoring Anticipate vaginal delivery
[2023-12-02 10:45] LABS: Basophils % 0.2 % (0.1-2.0); Eosinophils # 0.1 K/mm3 (0.0-0.4); Eosinophils % 0.8 % (0.1-12.0); Hematocrit 32.6 % (37.0-47.0); Hemoglobin 10.7 g/dL (12.2-16.2); Lymphocytes # 1.9 K/mm3 (0.7-4.5); Lymphocytes % 21.4 % (10-50); Mean Corpuscular HGB Conc 32.8 g/dL (31.8-35.4); Mean Corpuscular Hemoglobin 30.4 pg (27.0-31.2); Mean Corpuscular Volume 92.7 fl (81-99); Mean Platelet Volume 8.9 fl (7.4-10.4); Monocytes # 0.7 K/mm3 (0.1-1.0); Monocytes % 7.7 % (1.7-9.3); Neutrophils # 6.1 K/mm3 (1.8-7.8); Neutrophils % 69.9 % (37.0-80.0); Platelet Count 327 K/mm3 (142-424); Red Blood Count 3.52 M/mm3 (4.20-5.40); Red Cell Distribution Width 13.6 % (11.5-17.5); White Blood Count 8.7 K/mm3 (4.8-10.8)
[2023-12-02] MEDS: LACTATED RINGERS 1000ML 1,000 ML 999 ML IV (11:09)
[2023-12-02] MEDS: ONDANSETRON 4MG/2ML VIAL 4 MG IV (11:33)
--- NOTE | 2023-12-02 11:38 | P.PNANES_ITS ---
[facility] Disclaimer: The information contained in this section may have been updated after the patient was seen, as this information can be updated by other users. Medical History (Updated 11/27/23 @ 16:59 by Tiffany Roberson DO) Maternal obesity affecting , antepartum Heartburn during Anemia affecting Depression affecting Vaginal discharge during Rubella non-immune status, antepartum GBS bacteriuria Nausea and vomiting during Constipation during PCOS (polycystic ovarian syndrome) Anxiety and depression Surgical History Hx of cholecystectomy Hx of appendectomy H/O gastric sleeve Family History Brother Adopted Mother Anemia Diabetes Hyperlipidemia Hypertension Father Substance abuse Thyroid disorder Sister Substance abuse Father Substance abuse Family/Other Substance abuse Grandmother Diabetes FHx: mental illness Other Coronary artery disease Social History Smoking Status: Never smoker alcohol intake: never substance use type: denies use current occupational status: other Travel in the last 8 weeks: None [facility] Anesthesia Checklist Patient Identification Patient Identification: Arm Band and Verbal (Name & ) Structural Data Admitted From: Inpatient ([id number]) Planned Operative Procedure/s: Labor Epidural Consent for Planned Operative Procedure(s) Verified: Yes Verified Documents: Surgical Consent and History and Physical NPO Status Verified Time NPO: 10:25 Chart Verification Results Verified: CBC Additional verifications Patient : Yes Anesthesia Reactions: No Cardiovascular Assessment Heart Sounds: S1 & S2 Pulse Rhythm: Irregular Peripheral Edema: Yes (+ HARI LE) Airway Assessment Mallampati Score:: Class II C-Spine Mobility Assessed: Yes (FROM demonstrated) TMJ Mobility Assessed: Yes Dentition: Good Dentition (Nothing loose per pt.) Neurological Assessment Level of Consciousness: Awake, Alert, Appropriate and Follows Commands Hx Seizures: No Numbness or tingling in extremities: No Anesthesia Plan Anesthesia Risk discussed: Yes Anesthesia Plan: Verified ASA Class: III Anesthesia Type: Epidural
--- NOTE | 2023-12-02 11:43 | P.PCN_ITS ---
[facility] Procedure Note Date: 12/02/23 Time: 10:50 Procedure Note:: Anesthesia Procedure Note Labor Epidural Position: Sitting Prep: Betadine x3 Site: L3-4 Local to skin: Lido 1% x3 mL Needle: 19g Ravindra [place] to air: 9.5cm CSF: NEG; Heme: NEG; Parathesia: NEG Catheter easily threaded to: 20cm Test Dose of Lido 1.5% w/Epi 1:200K x5mL: NEGATIVE Catheter taped at skin: 16cm Bolus: Ropivicaine 0.2% x10mL w/Fentanyl 50mcg. BUILDING TRADES INSTRUCTOR started @:12mL/hr. of Ropivicaine 0.2% w/Fentanyl 2mcg/mL Will continue to follow as needed.
[2023-12-02] MEDS: OXYTOCIN/RINGERS LACTATE 30 UNITS/500 ML BAG IV (12:55)
[2023-12-02] MEDS: OXYTOCIN/RINGERS LACTATE 30 UNITS/500 ML BAG 40 UNITS IV (17:42)
--- NOTE | 2023-12-02 17:57 | EXP.DN ---
Delivery Note Delivery Date:: 12/02/23 Delivery Time:: 17:32 Anesthesia Type: Epidural Was labor medically induced?: No Gestational age (weeks): 36 Infant delivered prior to 39 weeks?: Yes Justification for early elective delivery:: Premature ROM Gender: Female at 1 minute: 8 at 5 minutes: 9 LAC or MLE?: LAC Delivery Procedure:: Mom complete without epidural. Pushed for approximately 10 minutes. Head delivered spontaneously over intact perineum in PRICILLA position. Nuchal cord x 1 easily reduced. Anterior shoulder delivered with gentle downward pressure. Posterior shoulder and remainder of body delivered spontaneously. Baby placed on maternal abdomen, mouth and nares bulb suctioned, warmed/dried and stimulated. Delayed cord clamping was performed for 60 seconds. Cord was clamped and cut by father of baby. Cord blood was obtained. Placenta delivered spontaneously and intact. Placenta and membranes meconium stained. Placenta will be sent to pathology for review. First degree perineal lacerations repaired with 3-0 Vicryl. Mom and baby were skin to skin and doing well after delivery. Live female baby (baby's name is Robert) APGARs 8 (1 min), 9 (5 min) EBL 300 mL Laceration:: vaginal Placental Delivery Description: Spontaneous
[2023-12-02 19:48] VITALS: BP 111/56; PULSE 64; RESP 20; TEMP 36.8; O2SAT 99
[2023-12-02] MEDS: ACETAMINOPHEN 500MG TAB 1000 MG PO (20:09)
[2023-12-02] MEDS: BENZOCAINE-MENTHOL SPRAY 56GM CAN TP (20:10)
[2023-12-02] MEDS: WITCH HAZEL 40 PADS/BOX 1 EACH TP (20:10)
[2023-12-03] MEDS: SENNA 8.6MG TABLET 8.6 MG PO ×2 (00:28→16:15)
[2023-12-03] MEDS: ACETAMINOPHEN 500MG TAB 1000 MG PO ×4 (03:21→23:17)
[2023-12-03 03:24] VITALS: BP 133/79; PULSE 74; RESP 17; TEMP 37.1; O2SAT 99
[2023-12-03] MEDS: SIMETHICONE 80MG CHEWABLE TABLET 160 MG PO (03:51)
[2023-12-03] MEDS: KETOROLAC 30MG/ML VIAL 60 MG IM (03:52)
[2023-12-03 07:21] LABS: Basophils % 0.2 % (0.1-2.0); Eosinophils # 0.1 K/mm3 (0.0-0.4); Eosinophils % 0.6 % (0.1-12.0); Hematocrit 27.1 % (37.0-47.0); Lymphocytes # 1.2 K/mm3 (0.7-4.5); Lymphocytes % 13.3 % (10-50); Mean Corpuscular HGB Conc 32.3 g/dL (31.8-35.4); Mean Corpuscular Hemoglobin 29.5 pg (27.0-31.2); Mean Corpuscular Volume 91.5 fl (81-99); Mean Platelet Volume 9.2 fl (7.4-10.4); Monocytes # 0.5 K/mm3 (0.1-1.0); Monocytes % 5.8 % (1.7-9.3); Neutrophils % 80.1 % (37.0-80.0); Platelet Count 311 K/mm3 (142-424); Red Blood Count 2.96 M/mm3 (4.20-5.40); Red Cell Distribution Width 13.8 % (11.5-17.5); White Blood Count 8.7 K/mm3 (4.8-10.8)
[2023-12-03 08:20] LABS: Hemoglobin 8.7 g/dL (12.2-16.2)
[2023-12-03 08:23] VITALS: BP 136/87; PULSE 84; RESP 18; TEMP 36.9; O2SAT 100
--- NOTE | 2023-12-03 08:39 | EXP.ACUTE.PN ---
Subjective *Date: 12/03/23 *Time: 08:39 Interval history: PPD # 1 s/p Feeling well. Pain somewhat controlled. She reports back pain and ovary pain. Toradol offered relief. Breast and formula feeding. Lochia is appropriate. Voiding without difficulty and passing flatus. Tolerating regular diet. Denies fever/chills, chest pain and shortness of breath. No headaches, vision changes, lightheadedness/dizziness. Admitds to lower extremity swelling. Ambulating well ad beronica. Medical Exam Vital signs and Labs for Last 24 Hours: Vital Signs Temp Pulse Resp BP Pulse Ox O2 Del Method 12/03/23 03:24 98.7 F 74 17 133/79 99 Room Air 12/02/23 19:48 98.3 F 64 20 111/56 L 99 Room Air Laboratory Results - last 24 hr 12/02/23 06:00: Urine Opiates Screen Negative, Urine Methadone Screen Negative, Ur Barbituates Screen Negative, Ur Phencyclidine Scrn Negative, Ur Amphetamines Screen Negative, U Benzodiazepines Scrn Negative, Urine Cocaine Screen Negative, U Marijuana (THC) Screen Negative 12/02/23 08:16: WBC 8.7, RBC 3.52 L, Hgb 10.7 L, Hct 32.6 L, MCV 92.7, MCH 30.4, MCHC 32.8, RDW 13.6, Plt Count 327, MPV 8.9, Neut % (Auto) 69.9, Lymph % (Auto) 21.4, Swain % (Auto) 7.7, Eos % (Auto) 0.8, Baso % (Auto) 0.2, Neut # (Auto) 6.1, Lymph # (Auto) 1.9, Swain # (Auto) 0.7, Eos # (Auto) 0.1, Baso # (Auto) 0.0, Blood Type O Positive, Antibody Screen Negative 12/03/23 06:57: WBC 8.7, RBC 2.96 L, Hgb 8.7 L D, Hct 27.1 L, MCV 91.5, MCH 29.5, MCHC 32.3, RDW 13.8, Plt Count 311, MPV 9.2, Neut % (Auto) 80.1 H, Lymph % (Auto) 13.3, Swain % (Auto) 5.8, Eos % (Auto) 0.6, Baso % (Auto) 0.2, Neut # (Auto) 7.0, Lymph # (Auto) 1.2, Swain # (Auto) 0.5, Eos # (Auto) 0.1, Baso # (Auto) 0.0 I & O for Labs for Last 24 Hours: Intake & Output 11/30/23 12/01/23 12/02/23 12/03/23 23:59 23:59 23:59 23:59 Weight 227 lb Head: Present atraumatic and normocephalic ENT: Present mucous membranes moist Neck: Present full ROM Respiratory: Present CTA bilaterally and normal respiratory effort Cardiac: Present Reg Rate and Rhythm GI: Present soft; Absent distention or tenderness Comments:: Uterine fundus firm and below umbilicus Rectal (female): Present deferred (female): Present deferred Extremities: Present full ROM and edema (+1 bilateral lower extremity edema); Absent calf tenderness Neuro: Present alert, awake and moves all extremities Assessment and Plan *Assessment and plan (1) (normal spontaneous vaginal delivery): Status: Acute Category: Medical Code(s): O80 - Encounter for full-term uncomplicated delivery (2) 36 weeks gestation of : Status: Acute Category: Medical Code(s): Z3A.36 - 36 weeks gestation of (3) premature rupture of membranes: Status: Acute Category: Medical Code(s): O42.919 - premature rupture of membranes, unspecified as to length of time between rupture and onset of labor, unspecified trimester (4) Maternal obesity affecting , antepartum: Status: Acute Category: Medical Code(s): O99.210 - Obesity complicating , unspecified trimester (5) Anemia affecting : Status: Acute Qualifiers: Trimester: third trimester Qualified Code(s): O99.013 - Anemia complicating , third trimester Category: Medical Code(s): O99.019 - Anemia complicating , unspecified trimester (6) Depression affecting : Status: Acute Category: Medical Code(s): O99.340 - Other mental disorders complicating , unspecified trimester; F32.A - Depression, unspecified (7) GBS bacteriuria: Problem Comment: Initial urine culture positive for GBS. She will need abx in labor regardless of RV swab Status: Acute Category: Medical Code(s): R82.71 - Bacteriuria (8) Acute blood loss anemia: Status: Acute Category: Medical Code(s): D62 - Acute posthemorrhagic anemia Plan Continue routine care AM Hgb 8.7 (10.7 on admission) Venofer 200 mg IV x 1 dose Plan d/c home tomorrow, PPD # 2
[2023-12-03] MEDS: IRON SUCROSE COMPLEX 200 MG in 0.9 % SODIUM CHLORIDE 100 ML 220 MG IV (09:14)
[2023-12-03 12:14] LABS: Rapid Plasma Reagin Ab Titer Non Reactive titer (NonRea<1:1)
[2023-12-03] MEDS: PRENATAL MULTIVITAMIN W/IRON 1 EACH PO (16:12)
[2023-12-03 19:55] VITALS: BP 119/61; PULSE 71; RESP 17; TEMP 37.1
[2023-12-03] MEDS: LANOLIN CREAM 40GM TP (23:20)
[2023-12-04] MEDS: WITCH HAZEL 40 PADS/BOX 1 EACH TP (08:33)
[2023-12-04] MEDS: ACETAMINOPHEN 500MG TAB 1000 MG PO (08:33)
[2023-12-04 08:34] VITALS: BP 144/76; PULSE 80; RESP 16; TEMP 36.7; O2SAT 99
--- NOTE | 2023-12-04 09:41 | P.DS_ITS ---
General Admission date:: 12/02/23 Discharge date: 12/04/23 HPI HPI HPI: Chief complaint: Decreased movement, contractions History of present illness: Ms Dalia Zayas is a 28 yo at 36w5d who presents to [facility] L&D with complaint of decreased movement this morning and continued tightening of her abdomen. She admits she had intercourse last night. Upon arrival to L&D cervix was 4/75/-2. She went to the bathroom to pee and started leaking fluid. Amnisure positive at 0653 this morning. She has had good care. complicated by maternal obestiy, anxiety/depression and anemia. She had GBS bactiuria on initial urine culture. History of Present Criteria for establishing EDC:: LMP confirmed by 1st trimester US care: good care Ultrasounds: normal mid trimester US Obstetrical complications: none Medical complications: none Labs Blood type: O (+) positive Rubella: nonimmune RPR/VDRL: nonreactive GBS status: positive HBsAG: negative Hospital Course Hospital Course Hospital Course: Dalia Zayas is a 28-year-old day 2 from a normal spontaneous vaginal delivery. She delivered a live viable female infant which weighed 6 pounds and 15 ounces. Delivery occurred on 12/02/2023 at 1732. Apgars were 8 and 9. EBL of 300. She did have a hemoglobin drop of 2 points down to 8.7. She received Venofer on day #1. She has rubella immune and GBS positive. She has both breast and bottlefeeding. Reports her pain is well-controlled, her lochia scant, and she is tolerating p.o. without nausea or vomiting. She is voiding spontaneously. All questions and concerns were addressed and she desires discharge home today. Routine discharge instructions reviewed with patient in detail and she voiced understanding. She will follow-up in the office in 2 weeks. Exam Data for Last 24 hours Vital signs and Labs for Last 24 Hours: Temp Pulse Resp BP Pulse Ox O2 Del Method 98.1 F 80 16 144/76 H 99 Room Air 12/04/23 08:34 12/04/23 08:34 12/04/23 08:34 12/04/23 08:34 12/04/23 08:34 12/04/23 08:34 Laboratory Results - last 24 hr 12/02/23 08:16: RPR Titer Non reactive I & O for Last 24 hours: Intake & Output 12/01/23 12/02/23 12/03/23 12/04/23 23:59 23:59 23:59 23:59 Weight 227 lb Microbiology Reports for the Last 24 Hours: Microbiology 12/02/23 06:00 Urine,Clean Catch Urine Culture - Final Multiple organisms, suggests contamination. Narrative: General: patient is alert oriented in no acute distress and responds appropriately to questions. Appears to be in minimal pain. HEENT: NCAT, EOMI, moist mucous membranes, neck supple with full ROM Cardiovascular: RRR +S1/S2, no murmurs or rubs Pulmonary: Clear to auscultation bilaterally, nonlabored breathing, symmetric chest rise Abdominal: Fundus below the umbilicus, firm, and tenderness appropriate for the period. Extremities: trace edema, no tenderness or cyanosis noted Skin: Normal turgor, intact, warm. Negative for erythema, pallor, petechia, or lesions Neurologic: Negative for sensory or motor deficit Psychiatric: Normal affect, normal thought process, good judgment and insight, no depression or anxious mood appreciated. Results Data Completed and Pending Labs on day of discharge: Labs from last 24 hours 12/02/23 08:16 RPR Titer Non reactive DS: Diagnosis Discharge Diagnosis (1) (normal spontaneous vaginal delivery): Status: Acute Code(s): O80 - Encounter for full-term uncomplicated delivery (2) 36 weeks gestation of : Status: Acute Code(s): Z3A.36 - 36 weeks gestation of (3) premature rupture of membranes: Status: Acute Code(s): O42.919 - premature rupture of membranes, unspecified as to length of time between rupture and onset of labor, unspecified trimester (4) Maternal obesity affecting , antepartum: Status: Acute Code(s): O99.210 - Obesity complicating , unspecified trimester (5) Anemia affecting : Status: Acute Code(s): O99.019 - Anemia complicating , unspecified trimester Qualifiers: Trimester: third trimester Qualified Code(s): O99.013 - Anemia complicating , third trimester (6) Depression affecting : Status: Acute Code(s): O99.340 - Other mental disorders complicating , unspecified trimester; F32.A - Depression, unspecified (7) GBS bacteriuria: Status: Acute Code(s): R82.71 - Bacteriuria Problem details: Initial urine culture positive for GBS. She will need abx in labor regardless of RV swab (8) Acute blood loss anemia: Status: Acute Code(s): D62 - Acute posthemorrhagic anemia Meds Home Medications and Allergies Home Medications ?Medication ?Instructions ?Recorded ?Confirmed ?Type vits no.126-ferrous fum 1 tab PO DAILY 05/15/23 12/02/23 History 28 mg iron-folic acid 800 mcg tablet (Classic ) famotidine 20 mg tablet (Pepcid) 20 mg PO BID #60 tabs 11/19/23 12/02/23 Rx bupropion HCl 150 mg 24 hr tablet, 150 mg PO DAILY #90 tabs 11/25/23 12/02/23 Rx extended release (Wellbutrin XL) acetaminophen 500 mg tablet 500 mg PO Q6H PRN fever or pain 12/04/23 Rx #30 tabs ferrous sulfate 325 mg (65 mg 325 mg PO DAILY #30 tabs 12/04/23 Rx iron) tablet,delayed release ibuprofen 800 mg tablet 800 mg PO Q8H PRN pain #60 tabs 12/04/23 Rx sennosides 8.6 mg tablet (Senna 8.6 mg PO BIDP PRN Constipation 12/04/23 Rx Lax) #60 tabs New Prescriptions to Start Prescriptions: acetaminophen Madyson Lizama ferrous sulfate Madyson Lizama ibuprofen Madyson Lizama sennosides [Senna Lax] Madyson Lizama Allergies Allergy/AdvReac Type Severity Reaction Status Date / Time amoxicillin Allergy Anaphylaxis Verified 11/27/23 15:55 Discharge Plan Disposition Patient Disposition: Home, Self-Care Discharge Order Discharge Orders: Discharge Order (Routine); Ordered 12/04/23 Ordered By: Madyson Lizama Follow up Plan Follow up with: Tiffany Roberson DO [Staff Physician] - 2 weeks Prescriptions/Medication Reconciliation: New sennosides [Senna Lax] 8.6 mg Tablet 8.6 mg PO BIDP PRN (Reason: Constipation) Qty: 60 2RF ibuprofen 800 mg tablet 800 mg PO Q8H PRN (Reason: pain) Qty: 60 2RF acetaminophen 500 mg tablet 500 mg PO Q6H PRN (Reason: fever or pain) Qty: 30 3RF ferrous sulfate 325 mg (65 mg iron) tablet,delayed release (DR/EC) 325 mg PO DAILY Qty: 30 3RF Continued famotidine [Pepcid] 20 mg tablet 20 mg PO BID Qty: 60 2RF Classic 28 mg iron- 800 mcg tablet 1 tab PO DAILY bupropion HCl [Wellbutrin XL] 150 mg tablet extended release 24 hr 150 mg PO DAILY Qty: 90 1RF Patient Comments: patient reports she is no longer taking this medication but that her son is. Problem Reconciliation Problems Reviewed?: Yes Patient Discharge Instructions ACTIVITY: Continue current activity DIET: regular diet Additional Instructions: Congratulations on the delivery of your sweet baby girl. It is my privilege to be a part of your [employer] team. Discharge: -Take 800 mg Ibuprofen every 8 hours as needed for pain. You can also take 500- 1000 mg of Tylenol in between doses, every 6-8 hours. -Colace can be taken 1-2 times per day as you need to soften your stool. Make tracy re to drink at least 8 cups of water per day. -Iron supplements can make you constipated. You can take iron tablets every other day if constipation is too bad. -Nothing in the vagina for 6 weeks - no intercourse, douching, tampons. No tub baths or swimming pools. -Do not lift greater than 20pounds for 2 weeks, this is the equivalent of 2 gallons of milk. -Reasons to return to L&D or call On-Call doctor - fever (greater than 100.4) - heavy vaginal bleeding (soaking through 1 pad in less than 2 hours or passing clots that are egg sized) - vaginal discharge (malodorous and/or purulent) - severe headaches, leg tenderness/edema, or any other symptoms that warrant immediate medical attention. depression/blues - Normal to feel anxious/overwhelmed for first 2 weeks - Talk to your doctor if: anxiety lasts over 2 weeks, trouble bonding with baby, withdrawing from other family members, thoughts of harming yourself or others Madyson Lizama DO [facility] [phone] *Nothing in the Vagina for 6 weeks* *No strenuous activity* *No heavy lifting* *No tub baths until okay's by MD* Patient Instructions: Depression, Hemorrhage, DI for Labor and Delivery, Vaginal , DI for Pre-eclampsia, [facility] Post Discharge Instructions Print Language: Georgian Providers Primary Care Provider: Ivonne Diez Admit Provider: Tiffany Roberson Attending Provider: Tiffany Roberson
== END 2023-12-04 14:10 | disposition home or self-care (01) | DRG 806 ==
LOC: OBOUT 07:44 → OB 07:44
PROVIDERS: Obstetrics & Gynecology; Admitting Provider Obstetrics & Gynecology; PCP Physician Assistant; Visit Provider Obstetrics & Gynecology
DX: O42.013 Preterm premature rupture of membranes, onset of labor within 24 hours of rupture, third trimester (principal); D62 Acute posthemorrhagic anemia; Z37.0 Single live birth; Z3A.36 36 weeks gestation of pregnancy; O69.81X0 Labor and delivery complicated by cord around neck, without compression, not applicable or unspecified; O36.8130 Decreased fetal movements, third trimester, not applicable or unspecified; O70.0 First degree perineal laceration during delivery; O99.02 Anemia complicating childbirth; R82.71 Bacteriuria
CPT/HCPCS: 36415; 59025; 80307; 81001; 84112; 85025; 86593; 86850; 87086; 94761; G0283; J1756; J1885; J2405; J3370; J7120

== ENCOUNTER 2024-01-13 13:06 | Outpatient (CLI) | payer BC, SELFPAY ==
[2024-01-13 13:58] LABS: Albumin Level 4.1 g/dl (3.5-5.0); Chloride 109 mmol/L (98-107)
[2024-01-13 13:59] LABS: Potassium 3.9 mmoL/L (3.5-5.1); Sodium 141 mmol/L (136-145)
[2024-01-13 14:01] LABS: Alanine Aminotransferase 20 U/L (12-78); Albumin/Globulin Ratio 1.4 (1.1-1.8); Alkaline Phosphatase 109 U/L (38-126); Anion Gap 13.9 mEq/L (5-15); Aspartate Amino Transferase 27 U/L (14-36); Bilirubin,Total 0.4 mg/dl (0.2-1.3); Blood Urea Nitrogen 16 mg/dl (7-17); Carbon Dioxide 22 mmol/L (22.0-30.0); Estimated Glomerular Filt Rate 85 ml/min (>60); GFR (African American) 103 ML/MIN (>60); Total Protein,Serum 7.1 g/dl (6.3-8.2)
[2024-01-13 14:02] LABS: Calcium 8.3 mg/dl (8.4-10.2); Glucose 143 mg/dl (74-100)
[2024-01-13 14:03] LABS: Basophils % 0.5 % (0.1-2.0); Eosinophils # 0.1 K/mm3 (0.0-0.4); Hemoglobin 11.7 g/dL (12.2-16.2); Lymphocytes # 2.1 K/mm3 (0.7-4.5); Lymphocytes % 29.2 % (10-50); Mean Corpuscular HGB Conc 33.5 g/dL (31.8-35.4); Mean Corpuscular Hemoglobin 29.3 pg (27.0-31.2); Mean Corpuscular Volume 87.5 fl (81-99); Mean Platelet Volume 7.6 fl (7.4-10.4); Monocytes # 0.5 K/mm3 (0.1-1.0); Monocytes % 7.6 % (1.7-9.3); Neutrophils # 4.3 K/mm3 (1.8-7.8); Neutrophils % 60.7 % (37.0-80.0); Platelet Count 383 K/mm3 (142-424); Red Cell Distribution Width 14.4 % (11.5-17.5); White Blood Count 7.1 K/mm3 (4.8-10.8)
[2024-01-13 14:30] LABS: HCG,Quantitative < 2 mIU/ml (0-5.42)
== END 2024-01-13 23:59 | disposition home or self-care (01) ==
LOC: PREOP 13:08
PROVIDERS: PCP Internal Medicine Adolescent Medicine; Visit Provider Obstetrics & Gynecology
DX: Z30.2 Encounter for sterilization (principal)
CPT/HCPCS: 80053; 84702; 85025

== ENCOUNTER 2024-04-05 13:38 | Outpatient (CLI) | payer OTHER, SELFPAY ==
[2024-04-05 13:41] VITALS: BMI 35.2
[2024-04-05 14:05] LABS: Basophils % 0.3 % (0.1-2.0); Eosinophils # 0.1 K/mm3 (0.0-0.4); Eosinophils % 1.3 % (0.1-12.0); Hemoglobin 11.2 g/dL (12.2-16.2); Lymphocytes # 2.4 K/mm3 (0.7-4.5); Lymphocytes % 30.8 % (10-50); Mean Corpuscular Hemoglobin 27.9 pg (27.0-31.2); Mean Corpuscular Volume 87.3 fl (81-99); Mean Platelet Volume 9.9 fl (7.4-10.4); Monocytes # 0.5 K/mm3 (0.1-1.0); Neutrophils # 4.6 K/mm3 (1.8-7.8); Neutrophils % 60.3 % (37.0-80.0); Platelet Count 384 K/mm3 (142-424); Red Blood Count 4.01 M/mm3 (4.20-5.40); Red Cell Distribution Width 13.7 % (11.5-17.5); White Blood Count 7.7 K/mm3 (4.8-10.8)
[2024-04-05 14:17] LABS: Chloride 107 mmol/L (98-107); Potassium 3.9 mmoL/L (3.5-5.1); Sodium 137 mmol/L (136-145)
[2024-04-05 14:20] LABS: Anion Gap 10.9 mEq/L (5-15); Blood Urea Nitrogen 24 mg/dl (7-17); Calcium 8.5 mg/dl (8.4-10.2); Carbon Dioxide 23 mmol/L (22.0-30.0); Creatinine Clearance Estimated 144 mL/min (50-200); Estimated Glomerular Filt Rate 74 ml/min (>60); GFR (African American) 90 ML/MIN (>60); Glucose 104 mg/dl (74-100)
[2024-04-05 14:45] LABS: HCG Qualitative, Serum Negative (Negative)
== END 2024-04-05 23:59 | disposition home or self-care (01) ==
LOC: PREOP 13:39
PROVIDERS: Nurse Anesthetist, Certified Registered; PCP Internal Medicine Adolescent Medicine; Visit Provider Obstetrics & Gynecology
DX: Z01.812 Encounter for preprocedural laboratory examination (principal)
CPT/HCPCS: 80048; 84703; 85025

== ENCOUNTER 2024-04-08 06:06 | Day surgery (SDC) | payer OTHER, SELFPAY ==
[2024-01-13 13:29] VITALS: BMI 33.5
[2024-04-08] VITALS (10 sets, daily range): BP systolic 113–143; BP diastolic 52–94; PULSE 65–99; RESP 16–18; TEMP 36.2–43; O2SAT 96–100
[2024-04-08] MEDS: LACTATED RINGERS 1000ML 1,000 ML 25 ML IV (06:25)
[2024-04-08] MEDS: ACETAMINOPHEN 500MG TAB 1000 MG PO (06:26)
--- NOTE | 2024-04-08 07:06 | P.PNANES_ITS ---
[facility] Disclaimer: The information contained in this section may have been updated after the patient was seen, as this information can be updated by other users. Medical History Low vitamin D level Mother currently breast-feeding Request for sterilization Acute blood loss anemia (normal spontaneous vaginal delivery) 36 weeks gestation of premature rupture of membranes Maternal obesity affecting , antepartum Heartburn during Anemia affecting Depression affecting Vaginal discharge during Rubella non-immune status, antepartum GBS bacteriuria Nausea and vomiting during Constipation during PCOS (polycystic ovarian syndrome) Anxiety and depression Surgical History Hx of cholecystectomy Hx of appendectomy H/O gastric sleeve Family History Brother Adopted Mother Anemia Diabetes Hyperlipidemia Hypertension Father Substance abuse Thyroid disorder Sister Substance abuse Father Substance abuse Family/Other Substance abuse Grandmother Diabetes FHx: mental illness Other Coronary artery disease Social History (Updated 04/08/24 @ 06:31 by Daya Alvarez RN) Smoking Status: Never smoker alcohol intake: never substance use type: denies use current occupational status: employed Travel in the last 8 weeks: None Have you lived/traveled outside US in past 30 days?: No Contact w/someone who lives/traveled outside US past 30 days?: No Exposure to someone with infectious disease in past 14 days?: No Do you have a fever (greater than 100.4 F or 38 C)?: No Have you tested positive for COVID-19: Yes Exposed to someone with COVID-19 in past 14 days?: No Do you have a sore throat?: No Do you have a cough?: No Do you have any weakness?: No Are you experiencing any nausea/vomitting?: No Do you have any diarrhea?: No Are you experiencing any unusual bleeding?: No Do you have any muscle aches/pain?: No Do you have any abdominal pain?: No Are you experiencing loss of taste or smell?: No [facility] Anesthesia Checklist Patient Identification Patient Identification: Arm Band and Family Structural Data Admitted From: Home Planned Operative Procedure/s: Bilateral Salpingectomy. Consent for Planned Operative Procedure(s) Verified: Yes Verified Documents: Surgical Consent and History and Physical NPO Status Verified Time NPO: 00:00 Additional verifications Patient : No Anesthesia Reactions: No Hx Blood Transfusions: No Blood Transfusion Reaction: No Cephalosporin Allergy: Yes Previous Colonoscopy: No Airway Assessment Mallampati Score:: Class III C-Spine Mobility Assessed: Yes TMJ Mobility Assessed: Yes Dentition: Partials Neurological Assessment Level of Consciousness: Awake, Alert, Appropriate and Follows Commands Hx Seizures: No Numbness or tingling in extremities: No Anesthesia Plan Anesthesia Risk discussed: Yes ASA Class: II Anesthesia Type: General Preoperative Comments Pre-Operative Comments: Gastric sleeve. Acid reflux.
[2024-04-08] MEDS: BUPIVACAINE 0.5% W/EPI 1:200,000 30ML VIAL 30 ML IJ (08:17)
--- NOTE | 2024-04-08 08:51 | P.PNANES_ITS ---
[facility] Anesthesia Record Part I Anesthesia Record I Intake, IV Amount: 900 Hydration: Adequate Estimated blood loss (mL): 0 Urine output (mL): 0 Blood Products used (#): none Blood Pressure: 143/94 SaO2: 100 Pulse Rate: 94 Airway Patency: Patent Respiratory Rate: 16 Temperature: 98.6 F Patient is:: Drowsy and Stable Stable to PACU at:: 08:43
[2024-04-08] MEDS: KETOROLAC 30MG/ML VIAL 30 MG IV (09:05)
--- NOTE | 2024-04-08 10:22 | P.OP_ITS ---
Date of procedure: 04/08/24 Pre-op Diagnosis:: 1. Complete family status, desires permanent sterilization Post-op Diagnosis:: 1. Complete family status, desires permanent sterilization 2. Stage 1 uterine prolapse and stage 1 cystocele Procedure performed:: Laparoscopy, bilateral salpingectomy Surgeon:: Tiffany Roberson DO Joinery Patternmaker(s):: N/a CONSTRUCTION ECONOMIST:: Sky Pardo Anesthesia: GETA Estimated blood loss (mL): 0 Clinical Note:: Mrs Dalia Zayas presents to [facility] for scheduled procedure. She is complete with childbearing and desires permanent sterilization. [id number]. History of x 3. Operative findings:: 1. On bimanual exam, grossly normal appearing cervix with stage 1 cystocele/uterine prolapse in dorsal lithotomy position. Uterus normal size and shape, midposition. No adnexal masses palpated 2. On laparoscopic exam, grossly normal appearing liver, stomach and bowel. Uterus, bilateral fallopian tubes and ovaries grossly normal. No masses, lesions or endometriosis noted Operative note:: Risks, benefits and alternatives were discussed with the patient. Risks include but are not limited to bleeding, infection, damage to adjacent structures and VTE. Patient voiced understanding and agreed to proceed with surgery. She was wheeled back to the operating room and placed under general anesthesia without difficulty. She was placed in the dorsal lithotomy position and prepped and draped in normal sterile fashion. A straight catheter was used to drain the bladder. A bimanual exam was performed. A weighted Auvard was placed in the vaginal vault. A single tooth tenaculum was placed on the anterior lip of the cervix. [place] manipulator was inserted into the cervical canal and attached to the tenaculum. Weighted Auvard was removed from the vagina. Attention was then drawn to the abdomen. A 1.5 cm infraumbilical incision was made. Veress needle was tested and inserted intraabdominally without difficulty. Opening pressure of 3 mm Hg. Abdomen was then insulflated to 15 mm Hg. Trocar was inserted through infraumbilical incision and laparoscope was inserted. Abdomen was viewed in its entirety. See findings above. Pictures were taken. Left lower quadrant was transilluminated. 5 mm incision was made and 5 mm disposable blunt trocar was inserted into the abdomen under direct laparoscopic visualization. Trocar was removed and sleeve was left in place. Right lower quadrant was transilluminated. A 5 mm incision was made and a 5 mm disposable trocar was inserted into the abdomen under direct laparoscopic visualization. Obturator was removed and sleeve was left in place. Fimbriated end of right fallopian tube was grasped. Ligasure was used to transect the right mesosalpinx and fallopian tube at uterine cornua, leaving right ovary in situ. Same procedure was carried out on the contralateral side. Bilateral fallopian tubes will be sent to pathology for review. Hemostasis was noted. Left lower quadrant trocar was removed under direct laparoscopic visualization. Right lower quadrant trocar was removed under direct laparoscopic visualization. Pneumoperitoneum was released into the atmosphere. Infraumbilical trocar was removed under direct laparoscopic visualization to ensure no herniation of bowel or omentum. Skin incisions were closed with 3-0 Vicryl. Dermabond was applied over closed skin incisions. All instruments were removed from the vagina. Tenaculum site was noted to be oozing. 2-0 Chromic was used to suture ligate tenaculum site. Hemostasis noted. Patient was cleaned and placed into the dorsal supine position. She awoke from anesthesia without difficulty. She was transported to the recovery room in stable condition. She was given instructions for discharge and to follow-up in t he office in 2 weeks at which time pathology will be reviewed. Condition: stable Disposition: same day Specimens:: 1. Bilateral fallopian tubes Complications:: None
--- NOTE | 2024-04-08 10:53 | P.PNANES_ITS ---
[facility] Anesthesia Record Part II Anesthesia Record Part II Discharge Time: 09:13 Destination: Surgical Day Care (OP Surgery) PACU nurse assessment reviewed?: Yes Patient Condition:: Good Anesthesia Complications:: None Swallowing reflex intact?: Yes Airway Patency: Patent Cyanosis?: No Blood Pressure: 128/85 SaO2: 98 Respiratory Rate: 18 Pulse Rate: 77 Temperature: 98.6 F Mental Status: Alert & Oriented Pain level:: 2 Nausea and/or vomitting:: None Intake, IV Amount: 0 Hydration: Adequate
== END 2024-04-08 09:52 | disposition home or self-care (01) ==
PROVIDERS: PCP Internal Medicine Adolescent Medicine; Visit Provider Obstetrics & Gynecology
PROC: (CPT 58661; principal; 2024-04-08 07:30)
DX: Z30.2 Encounter for sterilization (principal); N81.2 Incomplete uterovaginal prolapse
CPT/HCPCS: 58661; J3490; J1100; J1885; J2250; J2405; J3010; J7120

== ENCOUNTER 2024-04-18 09:15 | Emergency (ER) | payer OTHER, SELFPAY ==
--- NOTE | 2024-04-18 10:21 | EXP.UTC ---
Discharge Plan Disposition Patient Disposition: Home, Self-Care Condition: Good Prescriptions Prescriptions: New ondansetron 4 mg Tablet,Disintegrating 4 mg PO Q8H PRN (Reason: Nausea) Qty: 12 0RF azithromycin [Zithromax] 250 mg tablet 250 mg PO UD DOSE PK Qty: 6 0RF Rx Instructions: Take two (2) tablets today, then one (1) tablet days #2 thru #5 No Action famotidine [Pepcid] 20 mg tablet 20 mg PO BID Qty: 60 2RF Classic 28 mg iron- 800 mcg tablet 1 tab PO DAILY metoclopramide HCl 10 mg tablet 10 mg PO TID 7 Days Qty: 21 0RF Rx Instructions: administer 30 minutes before meals acetaminophen 500 mg tablet 500 mg PO Q6H PRN (Reason: fever or pain) Qty: 30 3RF hydrocodone-acetaminophen 5-325 mg tablet 1 tab PO Q6H PRN (Reason: pain) Qty: 10 0RF Referrals Follow up/Referrals: Deyvi Blankenship MD [Primary Care Provider] - See instructions Activity Restrictions/Add. Instructions Additional Instructions/Restrictions: Drink plenty of fluids. Take tylenol for pain or fever. Take the zofran (ondansetron) as directed. Follow up with your regular doctor. GO TO THE ER FOR ANY WORSENING SYMPTOMS Clinical Impressions Clinical Impression: Acute viral syndrome, Sinusitis Stand Alone Forms Stand Alone Forms: Work/School Release Instructions Patient Instructions: DI for Viral Syndrome, Ondansetron Print Language Print Language: [place] Discharge ED Provider: Sky Montes [facility] [place] HPI General Stated complaint: nausea, diarrhea, upper respiratory Time Seen by Provider: 04/18/24 10:15 Related Data Home Medications ?Medication ?Instructions ?Recorded ?Confirmed vits no.126-ferrous fum 1 tab PO DAILY 05/15/23 04/13/24 28 mg iron-folic acid 800 mcg tablet (Classic ) Previous Rx's ?Medication ?Instructions ?Recorded famotidine 20 mg tablet (Pepcid) 20 mg PO BID #60 tabs 11/19/23 acetaminophen 500 mg tablet 500 mg PO Q6H PRN fever or pain 12/04/23 #30 tabs metoclopramide HCl 10 mg tablet 10 mg PO TID 7 days #21 tabs 03/30/24 hydrocodone 5 mg-acetaminophen 325 1 tab PO Q6H PRN pain #10 tabs 04/08/24 mg tablet azithromycin 250 mg tablet 250 mg PO UD DOSE PK #6 tabs 04/18/24 (Zithromax) ondansetron 4 mg disintegrating 4 mg PO Q8H PRN Nausea #12 tabs 04/18/24 tablet Allergies Allergy/AdvReac Type Severity Reaction Status Date / Time amoxicillin Allergy Anaphylaxis Verified 04/13/24 13:36 dermabond Allergy Mild atopic Uncoded 04/13/24 14:20 dermatitis PFSH PFS Disclaimer: The information contained in this section may have been updated after the patient was seen, as this information can be updated by other users. Medical History (Updated 04/18/24 @ 15:53 by Sky Montes APRN) Postoperative visit Low vitamin D level Mother currently breast-feeding Request for sterilization Acute blood loss anemia (normal spontaneous vaginal delivery) 36 weeks gestation of premature rupture of membranes Maternal obesity affecting , antepartum Heartburn during Anemia affecting Depression affecting Vaginal discharge during Rubella non-immune status, antepartum GBS bacteriuria Nausea and vomiting during Constipation during PCOS (polycystic ovarian syndrome) Anxiety and depression Surgical History (Updated 04/13/24 @ 14:22 by Tiffany Roberson DO) Status post bilateral salpingectomy Hx of cholecystectomy Hx of appendectomy H/O gastric sleeve Family History Brother Adopted Mother Anemia Diabetes Hyperlipidemia Hypertension Father Substance abuse Thyroid disorder Sister Substance abuse Father Substance abuse Family/Other Substance abuse Grandmother Diabetes FHx: mental illness Other Coronary artery disease Social History Smoking Status: Never smoker alcohol intake: never substance use type: denies use current occupational status: employed Travel in the last 8 weeks: None Have you lived/traveled outside [place] in past 30 days?: No Contact w/someone who lives/traveled outside [place] past 30 days?: No Exposure to someone with infectious disease in past 14 days?: No Do you have a fever (greater than 100.4 F or 38 C)?: No Have you tested positive for COVID-19: No Exposed to someone with COVID-19 in past 14 days?: No Do you have a sore throat?: No Do you have a cough?: Yes Do you have any weakness?: No Do you have any diarrhea?: Yes Are you experiencing any unusual bleeding?: No Do you have any muscle aches/pain?: No Do you have any abdominal pain?: No Are you experiencing loss of taste or smell?: No ROS Obtained: Yes All systems reviewed & no additional complaints except as documented Constitutional Constitutional: Reports chills and Reports fever(s) Eyes Eyes: Denies eye discharge ENT Ears, Nose, Mouth, and Throat: Reports as per HPI Cardiovascular Cardiovascular: Denies chest pain Respiratory Respiratory: Denies chest congestion and Reports cough Gastrointestinal Gastrointestingal: Reports nausea; Denies abdominal pain, constipation, cramping, diarrhea or vomiting Musculoskeletal Musculoskeletal: Denies arthralgias Integumentary/Breasts Skin/Breast: Denies rash Neurologic Neurologic: Denies paresthesias Physical Exam General General appearance: alert and in no apparent distress Head Head exam: atraumatic, normocephalic and normal inspection Eye Eye exam: Present normal appearance, PERRL and EOMI ENT ENT exam: Present normal exam, normal oropharynx, mucous membranes moist, TM's normal bilaterally and normal external ear exam Neck Neck exam: Present normal inspection, full ROM and trachea midline; Absent meningismus or lymphadenopathy Chest Chest inspection: Present normal inspection and symmetric chest wall rise; Absent tenderness Respiratory Respiratory exam: Present normal lung sounds bilaterally; Absent respiratory distress Cardiovascular Cardiovascular exam: Present regular rate and normal rhythm; Absent JVD Abdominal Exam Abdominal exam: Present soft and normal bowel sounds; Absent distention, tenderness or guarding Extremities Exam Extremities exam: Present normal inspection, full ROM and normal capillary refill; Absent calf tenderness Back Exam Back exam: Present normal inspection; Absent tenderness Neurological Exam Neurological exam: Present alert and oriented X3 Psychiatric Psychiatric exam: Present normal affect and normal mood Skin Skin exam: Present warm, dry, intact and normal color Lymphatic Lymphatic Findings: no adenopathy Medical Decision Making Medical Records Medical records reviewed: No I reviewed the patient's medical records. Screening: Per USPSTF and CDC recommendations, given the prevalence of disease in our region, it is our hospital?s policy to screen for HIV and viral Hepatitis for all patients aged 18 and over and those with ongoing risk factors. Hero Inquiry Pt receiving controlled substance: No Lab Data Lab results reviewed: Yes I reviewed the patient's lab results.
[2024-04-18 10:29] VITALS: BP 122/82; PULSE 81; RESP 17; TEMP 36.8; O2SAT 97; BMI 33.2
[2024-04-18 11:23] VITALS: BP 122/82; PULSE 81; RESP 17; TEMP 36.8
[2024-04-18 11:23] LABS: Coronavirus 19, PCR Not Detected (NotDetected); Human Rhinovirus Not Detected (NotDetected); Influenza A, PCR Not Detected (NotDetected); Influenza B, PCR Not Detected (NotDetected); Respiratory Syncytial Virus Not Detected (NotDetected)
== END 2024-04-18 11:24 | disposition home or self-care (01) ==
PROVIDERS: Emergency Provider Nurse Practitioner Family; PCP Internal Medicine Adolescent Medicine
DX: B34.9 Viral infection, unspecified (principal); J32.9 Chronic sinusitis, unspecified
CPT/HCPCS: 87631; 99213; G0381

== ENCOUNTER 2024-06-01 18:23 | Outpatient (CLI) | payer OTHER, SELFPAY ==
--- NOTE | 2024-06-01 18:24 | XR_ITS ---
FINAL REPORT CLINICAL HISTORY: chest congestion/pain with cough COMPARISON: None FINDINGS: PA and lateral views of the chest were obtained. There is a vague opacity in the right lower lobe suspicious for mild pneumonia. The left lung is clear. The mediastinum has a normal appearance. The cardiac silhouette is unremarkable. IMPRESSION: Mild right basilar pneumonia. Reviewed, Interpreted and Dictated by Omar Nix MD Transcribed by Christel Paulino Authenticated and [facility]
[2024-06-01 20:26] LABS: Coronavirus 19, PCR Not Detected (NotDetected); Human Rhinovirus Not Detected (NotDetected); Influenza A, PCR Not Detected (NotDetected); Influenza B, PCR Not Detected (NotDetected); Respiratory Syncytial Virus Not Detected (NotDetected)
== END 2024-06-01 23:59 | disposition home or self-care (01) ==
LOC: RAD 18:24
PROVIDERS: PCP Internal Medicine Adolescent Medicine; Visit Provider Nurse Practitioner
DX: R50.9 Fever, unspecified (principal); R09.89 Other specified symptoms and signs involving the circulatory and respiratory systems
CPT/HCPCS: 71046; 87631

== ENCOUNTER 2024-06-10 09:59 | Outpatient (CLI) | payer OTHER, SELFPAY ==
[2024-06-10 15:24] LABS: Influenza A, PCR Not Detected (NotDetected); Influenza B, PCR Not Detected (NotDetected)
[2024-06-10 15:54] LABS: Coronavirus 19, PCR Detected (NotDetected)
== END 2024-06-10 23:59 | disposition home or self-care (01) ==
LOC: LAB.DROPOF 06-13 10:00
PROVIDERS: PCP Internal Medicine Adolescent Medicine; Visit Provider Nurse Practitioner
DX: R52 Pain, unspecified (principal)
CPT/HCPCS: 87636

== ENCOUNTER 2024-06-21 08:55 | Outpatient (CLI) | payer MEDICAID, SELFPAY ==
--- NOTE | 2024-06-21 09:00 | US_ITS ---
PROCEDURE INFORMATION: Exam: US Left Breast, Complete US Right Breast, Complete Exam date and time: 06/21/2024 8:48 AM Age: 28 years old Clinical indication: Breast pain; Left TECHNIQUE: Imaging protocol: Complete ultrasound of all four quadrants of the left breast and the retroareolar regions, including ultrasound of the axilla when performed. Complete ultrasound of all four quadrants of the right breast and the retroareolar regions, including ultrasound of the axilla when performed. COMPARISON: No relevant prior studies available. FINDINGS: ULTRASOUND: Breast ultrasound findings: Sonographic images of both breasts including the retroareolar regions, all 4 quadrants and the axilla do not demonstrate any solid or cystic masses. No architectural distortion or acoustical shadowing. No skin thickening or axillary adenopathy. IMPRESSION: No sonographic evidence of malignancy. Annual bilateral mammographic screening is recommended to commence at the age of 40 unless otherwise clinically indicated. ASSESSMENT: BI-RADS Category 1: Negative.
== END 2024-06-21 23:59 | disposition home or self-care (01) ==
LOC: RAD 08:55
PROVIDERS: PCP Internal Medicine Adolescent Medicine; Visit Provider Obstetrics & Gynecology
DX: N64.4 Mastodynia (principal)
CPT/HCPCS: 76641

== ENCOUNTER 2024-08-15 16:52 | Emergency (ER) | payer MEDICAID, SELFPAY ==
[2024-08-15 16:58] VITALS: BP 148/82; PULSE 96; RESP 16; TEMP 36.9; O2SAT 99; BMI 32.3
--- NOTE | 2024-08-15 17:01 | ECG_ITS ---
APPROVED REPORT Exam: Resting ECG HR:101 bpm ECG Measurements Heart Rate 101 AXES FL 147 P 66 QRSd 82 QRS 81 QT 334 T 78 QTc 392 Conclusion SINUS TACHYCARDIA ABNORMAL RHYTHM ECG Electronically signed by : EDD MCKOY, 08/15/2024 23:31:52
--- NOTE | 2024-08-15 17:20 | XR_ITS ---
PROCEDURE INFORMATION: Exam: XR Chest Exam date and time: 08/15/2024 6:29 PM Age: 29 years old Clinical indication: Shortness of breath; Additional info: Short of breath TECHNIQUE: Imaging protocol: Radiologic exam of the chest. Views: 1 view. COMPARISON: CR XR CHEST 2V 06/01/2024 6:18 PM FINDINGS: Lungs: Unremarkable. No consolidation. Pleural spaces: Unremarkable. No pleural effusion. No pneumothorax. Heart/Mediastinum: Unremarkable. No cardiomegaly. Bones/joints: Unremarkable. IMPRESSION: Stable chest x-ray with no acute disease.
--- NOTE | 2024-08-15 17:23 | ED_ITS ---
Discharge Plan Disposition Patient Disposition: Home, Self-Care Condition: Good Prescriptions Prescriptions: New nitrofurantoin macrocrystal 100 mg capsule 100 mg PO BID 5 Days Qty: 10 0RF Rx Instructions: must administer with a meal/food No Action Classic 28 mg iron- 800 mcg tablet PO DAILY Lacto no.84-[id number]-FBA-larch 25B cell-25B cell-50 mg capsule PO cholecalciferol (vitamin D3) 50 mcg (2,000 unit) capsule 50 mcg PO DAILY Referrals Follow up/Referrals: Deyvi Blankenship MD [Primary Care Provider, Internal Medicine] - See instructions Activity Restrictions/Add. Instructions Additional Instructions/Restrictions: As we discussed, I prescribed an antibiotic to treat your UTI. Your liver enzymes were elevated which may be due to an acute viral illness that is causing some of your nausea vomiting and diarrhea. Please follow this up with your primary care doctor to recheck your liver enzymes and see if this is resolving. Please return with any new or worsening symptoms Clinical Impressions Clinical Impression: Cystitis, Elevated liver enzymes Print Language Print Language: Georgian Discharge ED Provider: Oh Sarabia HPI <Rebekah Montgomery (ED), ECONOMICS ANALYST - Last Filed: 08/15/24 19:02> General Chief Complaint: Chest Pain Stated Complaint: pain in chest, back, radiating to lw back Time Seen by Provider: 08/15/24 17:13 Mode of Arrival: Ambulatory Source of Information: Patient Description of Symptoms (Recalled from ER Triage Doc. by RN): Pt states she has been around sick contacts with stomach virus. Today after lunch she began having tightness in her chest and it has become constant in her epigastric area radiating into back. Pt thought i tmay be heartburn took Tums no relief History of Present Illness HPI narrative: 29-year-old female presents to the ED today for complaint of chest pain, back pain epigastric pain, nausea but no vomiting. Patient states that she was seen last week for a throat infection. She was given antibiotics and told to start them if it got worse. She never started the antibiotics. Her daughter has been sick with a stomach virus. She thought that she was getting the stomach virus today after lunch, she started having chest pain and upper back pain. She says she did take Imodium today which she believes stopped her from having the diarrhea. She had a 99.1 temp today. She does have a white patch in the left side of her throat. No other associated signs or symptoms. Related Data Home Medications ?Medication ?Instructions ?Recorded ?Confirmed Lactobacillus 25 billion cap PO 06/07/24 06/10/24 cell-Bifido 25 billion [id number]-dvzod capsule cholecalciferol (vitamin D3) 50 50 mcg PO DAILY 06/10/24 mcg (2,000 unit) capsule vits no.126-ferrous fum tab PO DAILY 06/07/24 06/10/24 28 mg iron-folic acid 800 mcg tablet (Classic ) Previous Rx's ?Medication ?Instructions ?Recorded nitrofurantoin macrocrystal 100 mg 100 mg PO BID 5 day s #10 caps 08/15/24 capsule Allergies Allergy/AdvReac Type Severity Reaction Status Date / Time amoxicillin Allergy Anaphylaxis Verified 06/10/24 08:34 dermabond Allergy Mild atopic Uncoded 06/10/24 08:34 dermatitis PFS <Rebekah Montgomery (ED), ECONOMICS ANALYST - Last Filed: 08/15/24 19:02> [facility] Disclaimer: The information contained in this section may have been updated after the patient was seen, as this information can be updated by other users. Medical History Viral syndrome Breast pain in female Viral upper respiratory tract infection with cough Postoperative visit Low vitamin D level Mother currently breast-feeding Request for sterilization Acute blood loss anemia (normal spontaneous vaginal delivery) 36 weeks gestation of premature rupture of membranes Maternal obesity affecting , antepartum Heartburn during Anemia affecting Depression affecting Vaginal discharge during Rubella non-immune status, antepartum GBS bacteriuria Initial urine culture positive for GBS. She will need abx in labor regardless of RV swab Nausea and vomiting during Constipation during PCOS (polycystic ovarian syndrome) Anxiety and depression Surgical History Status post bilateral salpingectomy 04/08/24 Hx of cholecystectomy Hx of appendectomy H/O gastric sleeve Family History Brother Adopted Mother Anemia Diabetes Hyperlipidemia Hypertension Father Substance abuse Thyroid disorder Sister Substance abuse Father Substance abuse Family/Other Substance abuse Grandmother Diabetes FHx: mental illness Other Coronary artery disease Social History Smoking Status: Never smoker alcohol intake: never substance use type: denies use current occupational status: employed Travel in the last 8 weeks?: None Have you lived/traveled outside US in past 30 days?: No Contact w/someone who lives/traveled outside US past 30 days?: No Exposure to someone with infectious disease in past 14 days?: No Do you have a fever (greater than 100.4 F or 38 C)?: No Have you tested positive for COVID-19?: No Exposed to someone with COVID-19 in past 14 days?: No Do you have a sore throat?: No Do you have a cough?: No Do you have any weakness?: No Do you have any diarrhea?: No Are you experiencing any unusual bleeding?: No Do you have any muscle aches/pain?: No Do you have any abdominal pain?: No Are you experiencing loss of taste or smell?: No Other Medical History Have you received the Flu Vaccine for this season: No Have you received the Pneumonia Vaccine: No <Rebekah Montgomery (ED), ECONOMICS ANALYST - Last Filed: 08/15/24 19:02> ROS Obtained: Yes Systems reviewed as appropriate & no additional complaints except as documented Constitutional Constitutional: Reports as per HPI Physical Exam <Rebekah Montgomery (ED), ECONOMICS ANALYST - Last Filed: 08/15/24 19:02> General General appearance: alert and in no apparent distress Head Head exam: atraumatic and normocephalic Eye Eye exam: Present normal appearance and PERRL ENT ENT exam: Present mucous membranes moist and other (Left tonsil with exudate) Neck Neck exam: Present normal inspection and trachea midline Chest Chest inspection: Present symmetric chest wall rise Respiratory Respiratory exam: Present normal lung sounds bilaterally Cardiovascular Cardiovascular exam: Present regular rate, normal rhythm, normal heart sounds, +S1 and +S2 Abdominal Exam Abdominal exam: Present soft and normal bowel sounds Abdominal tenderness: Present epigastrium (Tender) Extremities Exam Extremities exam: Present full ROM and normal capillary refill Back Exam Back exam: Present normal inspection and full ROM Neurological Exam Neurological exam: Present alert, oriented X3 and normal gait Psychiatric Psychiatric exam: Present normal affect and normal mood Skin Skin exam: Present warm and dry HEART Score <Oh Sarabia MD - Last Filed: 08/15/24 23:49> HEART Score HEART Score assessment performed?: Yes HEART Score: 2 Critical Care <Oh Sarabia MD - Last Filed: 08/15/24 23:49> Critical Care Time Critical Care Time: No Medical Decision Making <Rebekah Montgomery (ED), ECONOMICS ANALYST - Last Filed: 08/15/24 19:02> Hero Inquiry Pt receiving controlled substance: No Hero was queried for this patient: No Vital Signs Vital Signs: 08/15/24 16:58 08/15/24 17:30 08/15/24 20:39 Temperature 98.4 F 97.9 F Temperature Source Oral Oral Pulse Rate 102 H 74 Pulse Rate [Left] 96 H Respiratory Rate 16 16 Blood Pressure 146/93 H 128/72 Blood Pressure [Right Arm] 148/82 H Blood Pressure Mean 103 Blood Pressure Mean [Right Arm] 104 Blood Pressure Source Automatic Cuff Blood Pressure Source [Right Arm] Automatic Cuff Blood Pressure Position Supine Blood Pressure Position [Right Arm] Sitting 02 Sat by Pulse Oximetry 99 97 Oxygen Delivery Method Room Air Room Air Room Air Lab Data Labs: Lab Results 08/15/24 17:04: WBC 6.8, RBC 4.38, Hgb 13.2, Hct 39.1, MCV 89.3, MCH 30.1, MCHC 33.8, RDW 13.5, Plt Count 356, MPV 10.0, Neut % (Auto) 75.1, Lymph % (Auto) 14.8, Mason % (Auto) 8.7, Eos % (Auto) 1.0, Baso % (Auto) 0.3, Neut # (Auto) 5.1, Lymph # (Auto) 1.0, Mason # (Auto) 0.6, Eos # (Auto) 0.1, Baso # (Auto) 0.0, PT 11.0, INR 0.99, Sodium 140, Potassium 3.7, Chloride 105, Carbon Dioxide 29, Anion Gap 9.7, BUN 18 H, Creatinine 0.80, Estimated Creat Clear 147, Estimated GFR 84, Est GFR ( Amer) 102, Glucose 95, Calcium 8.7, Magnesium 1.7, Total Bilirubin 0.8, AST 420 H*, ALT 229 H, Alkaline Phosphatase 212 H, Troponin I < 0.01, Total Protein 7.5, Albumin 4.4, Globulin 3.1, Albumin/Globulin Ratio 1.4, Lipase 97, Salicylates < 1.0 L, Acetaminophen < 10 L, HCV Ab VICK w/Rflx PCR Qn Negative, Monoscreen Negative, HIV Ag/Ab Combo Qual Negative 08/15/24 17:07: SARS-CoV-2 (PCR) Not detected, Influenza Type A (PCR) Not detected, Influenza Type B (PCR) Not detected, RSV (PCR) Not detected, Rhinovirus (PCR) Not detected 08/15/24 17:32: Group A Strep Rapid Negative 08/15/24 17:50: Urine Color Yellow, Urine Appearance Clear, Urine pH 6.0, Ur Specific Mellen 1.015, Urine Protein Negative, Urine Glucose (UA) Negative, Urine Ketones Trace, Urine Blood Negative, Urine Nitrate Negative, Urine Bilirubin Negative, Urine Urobilinogen 2.0, Ur Leukocyte Esterase Trace, Urine RBC Occasional, Urine WBC 10-20, Ur Squamous Epith Cells 20-50, Urine Bacteria 2+ 08/15/24 17:04 08/15/24 17:04 Response Orders (Tests/Meds): ED MEDICATIONS Discontinued Medications Generic Name Dose Route Start Last Admin Trade Name Freq PRN Reason Stop Dose Admin Famotidine 20 mg 08/15/24 17:20 08/15/24 17:30 Famotidine 20mg/2ml Vial IV 08/15/24 17:21 20 mg ONCE ONE Administration Sodium Chloride 1,000 mls @ 999 mls/hr 08/15/24 19:13 08/15/24 19:18 Sod Chlor 0.9% 1000ml Bag IV 08/15/24 20:13 999 mls/hr .Q1H1M ONE Administration Iopamidol 75 ml 08/15/24 18:27 08/15/24 18:28 Iopamidol-370 (76%);100ml Bottle IV 08/15/24 18:28 75 ml ONCE ONE Administration Ondansetron HCl 4 mg 08/15/24 17:20 08/15/24 17:30 Ondansetron 4mg/2ml Vial IV 08/15/24 17:21 4 mg ONCE ONE Administration Sodium Chloride 8 ml 08/15/24 17:20 08/15/24 17:30 Sodium Chloride 0.9% 10ml Vial IV 09/14/24 17:19 8 ml NEEDED PRN Administration dilute pepcid Sodium Chloride 10 ml 08/15/24 18:27 08/15/24 18:28 Sodium Chloride 0.9% 10ml Syr (Rad Only) IV 08/15/24 18:28 10 ml ONCE ONE Administration ORDERS Category Date Time Status CT abdomen pelvis w con Stat Cat Scan 08/15/24 17:47 Completed Chest XR -- portable [XR chest portable] Stat Exams 08/15/24 17:20 Completed POCUS Point of Care (ER Only) Stat Exams 08/15/24 17:39 Taken POCUS Point of Care (ER Only) Stat Exams 08/15/24 17:39 Taken Acetaminophen Stat Lab 08/15/24 17:04 Completed CBC [Complete Blood Count Auto Diff] Stat Lab 08/15/24 17:04 Completed Comprehensive Metabolic Panel Stat Lab 08/15/24 17:04 Completed HIV Combo Stat Lab 08/15/24 17:04 Completed Hepatitis C Ab Qual. W/ RFX Stat Lab 08/15/24 17:04 Completed Hepatitis Panel Stat Lab 08/15/24 18:51 Received Lipase Stat Lab 08/15/24 17:04 Completed Magnesium Stat Lab 08/15/24 17:04 Completed Mini Respiratory Panel Stat Lab 08/15/24 17:07 Completed Monoscreen (Rapid) Stat Lab 08/15/24 17:04 Completed PT INR [Prothrombin Time INR] Stat Lab 08/15/24 17:04 Completed Rapid Strep Scrn Group A [Strep Scrn Group A (Rapid)] Lab 08/15/24 17:32 Completed Stat Salicylate Stat Lab 08/15/24 17:04 Completed Trop I [Troponin I] Stat Lab 08/15/24 17:04 Completed Urinalysis and Microscopic Stat Lab 08/15/24 17:50 Completed Strep Screen Confirmation Stat Micro 08/15/24 17:32 Received Urine Culture Stat Micro 08/15/24 17:50 Received MDM Narrative Medical Decision Narrative: patient is a 29-year-old female presenting to the emergency department for evaluation of chest pain, back pain and not feeling well after lunch today. Complained of upper back, chest pain and feeling lethargic . She also complained of epigastric pain.. Patient is hemodynamically stable and nontoxic- appearing upon arrival, afebrile. Differential diagnosis includes viral illness, strep, mono, among others. Workup will be conducted with hematologic labs, respiratory panel, strep and mono swabs. Initial inventions include famotidine and Zofran for symptoms. Initial lab work showed AST 428 ALT 229 and alk phos 212. Talk to Dr. Westbrook about this and he saw patient and we will now add on a CT scan of abdomen and pelvis. We will also add Tylenol and aspirin levels. I also added a hepatitis panel. Will leave patient with Dr. Westbrook as it is shift change. <Oh Sarabia MD - Last Filed: 08/15/24 23:49> Vital Signs Vital Signs: 08/15/24 16:58 08/15/24 17:30 08/15/24 20:39 Temperature 98.4 F 97.9 F Temperature Source Oral Oral Pulse Rate 102 H 74 Pulse Rate [Left] 96 H Respiratory Rate 16 16 Blood Pressure 146/93 H 128/72 Blood Pressure [Right Arm] 148/82 H Blood Pressure Mean 103 Blood Pressure Mean [Right Arm] 104 Blood Pressure Source Automatic Cuff Blood Pressure Source [Right Arm] Automatic Cuff Blood Pressure Position Supine Blood Pressure Position [Right Arm] Sitting 02 Sat by Pulse Oximetry 99 97 Oxygen Delivery Method Room Air Room Air Room Air Lab Data Labs: Lab Results 08/15/24 17:04: WBC 6.8, RBC 4.38, Hgb 13.2, Hct 39.1, MCV 89.3, MCH 30.1, MCHC 33.8, RDW 13.5, Plt Count 356, MPV 10.0, Neut % (Auto) 75.1, Lymph % (Auto) 14.8, Mason % (Auto) 8.7, Eos % (Auto) 1.0, Baso % (Auto) 0.3, Neut # (Auto) 5.1, Lymph # (Auto) 1.0, Mason # (Auto) 0.6, Eos # (Auto) 0.1, Baso # (Auto) 0.0, PT 11.0, INR 0.99, Sodium 140, Potassium 3.7, Chloride 105, Carbon Dioxide 29, Anion Gap 9.7, BUN 18 H, Creatinine 0.80, Estimated Creat Clear 147, Estimated GFR 84, Est GFR ( Amer) 102, Glucose 95, Calcium 8.7, Magnesium 1.7, Total Bilirubin 0.8, AST 420 H*, ALT 229 H, Alkaline Phosphatase 212 H, Troponin I < 0.01, Total Protein 7.5, Albumin 4.4, Globulin 3.1, Albumin/Globulin Ratio 1.4, Lipase 97, Salicylates < 1.0 L, Acetaminophen < 10 L, HCV Ab VICK w/Rflx PCR Qn Negative, Monoscreen Negative, HIV Ag/Ab Combo Qual Negative 08/15/24 17:07: SARS-CoV-2 (PCR) Not detected, Influenza Type A (PCR) Not detected, Influenza Type B (PCR) Not detected, RSV (PCR) Not detected, Rhinovirus (PCR) Not detected 08/15/24 17:32: Group A Strep Rapid Negative 08/15/24 17:50: Urine Color Yellow, Urine Appearance Clear, Urine pH 6.0, Ur Specific Mellen 1.015, Urine Protein Negative, Urine Glucose (UA) Negative, Urine Ketones Trace, Urine Blood Negative, Urine Nitrate Negative, Urine Bilirubin Negative, Urine Urobilinogen 2.0, Ur Leukocyte Esterase Trace, Urine RBC Occasional, Urine WBC 10-20, Ur Squamous Epith Cells 20-50, Urine Bacteria 2+ Response Orders (Tests/Meds): ED MEDICATIONS Discontinued Medications Generic Name Dose Route Start Last Admin Trade Name Freq PRN Reason Stop Dose Admin Famotidine 20 mg 08/15/24 17:20 08/15/24 17:30 Famotidine 20mg/2ml Vial IV 08/15/24 17:21 20 mg ONCE ONE Administration Sodium Chloride 1,000 mls @ 999 mls/hr 08/15/24 19:13 08/15/24 19:18 Sod Chlor 0.9% 1000ml Bag IV 08/15/24 20:13 999 mls/hr .Q1H1M ONE Administration Iopamidol 75 ml 08/15/24 18:27 08/15/24 18:28 Iopamidol-370 (76%);100ml Bottle IV 08/15/24 18:28 75 ml ONCE ONE Administration Ondansetron HCl 4 mg 08/15/24 17:20 08/15/24 17:30 Ondansetron 4mg/2ml Vial IV 08/15/24 17:21 4 mg ONCE ONE Administration Sodium Chloride 8 ml 08/15/24 17:20 08/15/24 17:30 Sodium Chloride 0.9% 10ml Vial IV 09/14/24 17:19 8 ml NEEDED PRN Administration dilute pepcid Sodium Chloride 10 ml 08/15/24 18:27 08/15/24 18:28 Sodium Chloride 0.9% 10ml Syr (Rad Only) IV 08/15/24 18:28 10 ml ONCE ONE Administration ORDERS Category Date Time Status CT abdomen pelvis w con Stat Cat Scan 08/15/24 17:47 Completed Chest XR -- portable [XR chest portable] Stat Exams 08/15/24 17:20 Completed POCUS Point of Care (ER Only) Stat Exams 08/15/24 17:39 Taken POCUS Point of Care (ER Only) Stat Exams 08/15/24 17:39 Taken Acetaminophen Stat Lab 08/15/24 17:04 Completed CBC [Complete Blood Count Auto Diff] Stat Lab 08/15/24 17:04 Completed Comprehensive Metabolic Panel Stat Lab 08/15/24 17:04 Completed HIV Combo Stat Lab 08/15/24 17:04 Completed Hepatitis C Ab Qual. W/ RFX Stat Lab 08/15/24 17:04 Completed Hepatitis Panel Stat Lab 08/15/24 18:51 Received Lipase Stat Lab 08/15/24 17:04 Completed Magnesium Stat Lab 08/15/24 17:04 Completed Mini Respiratory Panel Stat Lab 08/15/24 17:07 Completed Monoscreen (Rapid) Stat Lab 08/15/24 17:04 Completed PT INR [Prothrombin Time INR] Stat Lab 08/15/24 17:04 Completed Rapid Strep Scrn Group A [Strep Scrn Group A (Rapid)] Lab 08/15/24 17:32 Completed Stat Salicylate Stat Lab 08/15/24 17:04 Completed Trop I [Troponin I] Stat Lab 08/15/24 17:04 Completed Urinalysis and Microscopic Stat Lab 08/15/24 17:50 Completed Strep Screen Confirmation Stat Micro 08/15/24 17:32 Received Urine Culture Stat Micro 08/15/24 17:50 Received MDM Narrative Medical Decision Narrative: patient is a 29-year-old female presenting to the emergency department for evaluation of chest pain, back pain and not feeling well after lunch today. Complained of upper back, chest pain and feeling lethargic . She also complained of epigastric pain.. Patient is hemodynamically stable and nontoxic- appearing upon arrival, afebrile. Differential diagnosis includes viral illness, strep, mono, among others. Workup will be conducted with hematologic labs, respiratory panel, strep and mono swabs. Initial inventions include famotidine and Zofran for symptoms. Initial lab work showed AST 428 ALT 229 and alk phos 212. Talk to Dr. Westbrook about this and he saw patient and we will now add on a CT scan of abdomen and pelvis. We will also add Tylenol and aspirin levels. I also added a hepatitis panel. Will leave patient with Dr. Westbrook as it is shift change. Oh Sarabia MD HONEY: I assumed care of this patient from the [facility]. CT imaging reveals evidence of fatty liver disease. Etiology of elevated liver enzymes is unclear at this time however most consistent with viral illness versus fatty liver disease. Coags within normal limits. Patient denies any abdominal pain at this time. She is stable for discharge at this time with outpatient follow- up. Return precautions given.She was advised to follow-up incidental findings as well as pending labs with primary care doctor
[2024-08-15 17:24] LABS: Coronavirus 19, PCR Not Detected (NotDetected); Human Rhinovirus Not Detected (NotDetected); Influenza A, PCR Not Detected (NotDetected); Influenza B, PCR Not Detected (NotDetected); Respiratory Syncytial Virus Not Detected (NotDetected)
[2024-08-15 17:26] LABS: Basophils % 0.3 % (0.1-2.0); Eosinophils # 0.1 Kmm3 (0.0-0.4); Hematocrit 39.1 % (37.0-47.0); Hemoglobin 13.2 g/dL (12.2-16.2); Immature Granulocytes # 0.01 10^3uL; Immature Granulocytes % 0.1 %; Lymphocytes % 14.8 % (10-50); Mean Corpuscular HGB Conc 33.8 g/dL (31.8-35.4); Mean Corpuscular Hemoglobin 30.1 pg (27.0-31.2); Mean Corpuscular Volume 89.3 fl (81-99); Monocytes # 0.6 K/mm3 (0.1-1.0); Monocytes % 8.7 % (1.7-9.3); Neutrophils # 5.1 K/mm3 (1.8-7.8); Neutrophils % 75.1 % (37.0-80.0); Nucleated Red Blood Cells # 0 10^3/uL; Nucleated Red Blood Cells % 0 %; Platelet Count 356 K/mm3 (142-424); Red Blood Count 4.38 M/mm3 (4.20-5.40); Red Cell Distribution Width 13.5 % (11.5-17.5); Red Cell Distribution Width-SD 42.8 fL; White Blood Count 6.8 K/mm3 (4.8-10.8)
[2024-08-15 17:30] VITALS: BP 146/93; PULSE 102; O2SAT 97
[2024-08-15] MEDS: SODIUM CHLORIDE 0.9% 10ML VIAL 8 ML IV (17:30)
[2024-08-15] MEDS: ONDANSETRON 4MG/2ML VIAL 4 MG IV (17:30)
[2024-08-15] MEDS: FAMOTIDINE 20MG/2ML VIAL 20 MG IV (17:30)
[2024-08-15 17:33] LABS: Alanine Aminotransferase 229 U/L (12-78); Albumin Level 4.4 g/dl (3.5-5.0); Albumin/Globulin Ratio 1.4 (1.1-1.8); Alkaline Phosphatase 212 U/L (38-126); Aspartate Amino Transferase 420 U/L (14-36); Bilirubin,Total 0.8 mg/dl (0.2-1.3); Blood Urea Nitrogen 18 mg/dl (7-17); Calcium 8.7 mg/dl (8.4-10.2); Carbon Dioxide 29 mmol/L (22.0-30.0); Chloride 105 mmol/L (98-107); Creatinine Clearance Estimated 147 mL/min (50-200); Estimated Glomerular Filt Rate 84 ml/min (>60); GFR (African American) 102 ML/MIN (>60); Globulin 3.1 g/dL (1.3-3.2); Glucose 95 mg/dl (74-100); Lipase 97 U/L (23-300); Magnesium 1.7 mg/dl (1.6-2.3); Sodium 140 mmol/L (136-145); Total Protein,Serum 7.5 g/dl (6.3-8.2)
[2024-08-15 17:38] LABS: Anion Gap 9.7 mEq/L (5-15); Potassium 3.7 mmoL/L (3.5-5.1)
[2024-08-15 17:46] LABS: Troponin I < 0.01 ng/ml (0.00-0.034)
--- NOTE | 2024-08-15 17:47 | CT_ITS ---
PROCEDURE INFORMATION: Exam: CT Abdomen And Pelvis With Contrast Exam date and time: 08/15/2024 6:27 PM Age: 29 years old Clinical indication: Other: Elevated liver enzymes TECHNIQUE: Imaging protocol: Computed tomography of the abdomen and pelvis with contrast. Radiation optimization: All CT scans at this facility use at least one of these dose optimization techniques: automated exposure control; mA and/or kV adjustment per patient size (includes targeted exams where dose is matched to clinical indication); or iterative reconstruction. Contrast material: ISOVUE; Contrast volume: 75 ml; Contrast route: IV; COMPARISON: US OB FOLLOW UP 08/24/2023 2:19 PM FINDINGS: Lungs: A 3 mm nodule lateral left lower lobe on image 5 of series 3. Liver: Fatty liver changes with associated hepatomegaly measuring 19.6 cm. Liver otherwise unremarkable. Gallbladder and biliary ducts: Status post cholecystectomy. CBD measures 8 mm in caliber. Pancreas: Normal. No ductal dilation. Spleen: Normal. No splenomegaly. Adrenal glands: Normal. No mass. Kidneys and ureters: Normal. No hydronephrosis. Stomach and bowel: Gastric sleeve procedure. Appendix: No evidence of appendicitis. Intraperitoneal space: Unremarkable. No free air. No significant fluid collection. Vasculature: Unremarkable. No abdominal aortic aneurysm. Lymph nodes: Unremarkable. No enlarged lymph nodes. Urinary bladder: Unremarkable as visualized. Reproductive: Unremarkable as visualized. Bones/joints: Unremarkable. No acute fracture. Soft tissues: Unremarkable. IMPRESSION: 1. No acute abnormalities of the abdomen and pelvis. Nonemergent findings as above. 2. Fatty liver changes with hepatomegaly. 3. Mildly dilated CBD at 8 mm most likely residual of prior cholecystectomy if no clinical findings to suggest developing bile duct obstruction. 4. A 3 mm nodule lateral left lower lobe. For patients at low risk (minimal or absent history of smoking and of other known risk factors), no routine follow-up is indicated. For patients at high risk (history of smoking or of other known risk factors), consider optional CT Chest at 12 months. (Reference: Viry) REFERENCES: Viry Yoder et al. Guidelines for Management of Incidental Pulmonary Nodules Detected on CT Images: From the Fleischner Society 2017. Radiology. 2017;284(1):228-243.
[2024-08-15 17:58] LABS: Monoscreen (Rapid) Negative (Negative)
[2024-08-15 17:59] LABS: Microscopic, Urine URINE MICROSCOPIC (MICROSCOPIC)
[2024-08-15 18:03] LABS: Appearance,Urine CLEAR (Clear); Bilirubin,Urine Negative (Negative); Blood, Urine Negative (Negative); Color,Urine YELLOW (Yellow); Glucose,Urine (UA) Negative (Negative); Ketones,Urine TRACE (Negative); Leukocyte Esterase,Urine TRACE (Negative); Nitrate,Urine Negative (Negative); Protein,Urine Negative (Negative); Specific Gravity, Urine 1.015 (1.005-1.030)
[2024-08-15 18:04] LABS: Strep Scrn Group A (Rapid) Negative (Negative)
[2024-08-15 18:06] LABS: Acetaminophen < 10 ug/ml (10-30); Salicylate < 1.0 mg/dL (2.0-20.0)
[2024-08-15 18:19] LABS: Bacteria,Urine 2+ /lpf; RBC,Urine Occasional #/hpf (0-3); Squamous Epithelial Cell,Urine 20-50 #/hpf (0-5)
[2024-08-15 18:25] LABS: HIV Combo NEGATIVE (Negative)
[2024-08-15] MEDS: IOPAMIDOL-370 (76%);100ML BOTTLE 75 ML IV (18:28)
[2024-08-15] MEDS: SODIUM CHLORIDE 0.9% 10ML SYR (RAD ONLY) 10 ML IV (18:28)
[2024-08-15 18:34] LABS: Hepatitis C Ab Qual. W/ RFX NEGATIVE (Negative)
--- NOTE | 2024-08-15 18:53 | PC.NURSE ---
3 yellow tops pulled per Lab at this time
--- NOTE | 2024-08-15 19:04 | ECG_ITS ---
APPROVED REPORT Exam: Resting ECG HR:102 bpm ECG Measurements Heart Rate 102 AXES WA 154 P 66 QRSd 78 QRS 81 QT 326 T 81 QTc 385 Conclusion SINUS TACHYCARDIA ABNORMAL RHYTHM ECG No STEMI Electronically signed by : RAYNA CHRISTIANSEN, 08/16/2024 06:33:52
[2024-08-15] MEDS: 0.9 % SODIUM CHLORIDE 1000ML 1,000 ML 999 ML IV (19:18)
[2024-08-15 19:28] LABS: INR 0.99 (0.9-1.1)
[2024-08-15 20:39] VITALS: BP 128/72; PULSE 74; RESP 16; TEMP 36.6; O2SAT 98
[2024-08-17 09:13] LABS: HBsAg Screen Negative (Negative); HCV Ab Non Reactive (Non Reactive); Hep A Ab, IGM Negative (Negative); Hep B Core Ab, IgM Negative (Negative)
== END 2024-08-15 20:44 | disposition home or self-care (01) ==
PROVIDERS: Nurse Practitioner; Emergency Provider Emergency Medicine; PCP Internal Medicine Adolescent Medicine
DX: R07.9 Chest pain, unspecified (principal); R00.0 Tachycardia, unspecified; N30.00 Acute cystitis without hematuria; R94.5 Abnormal results of liver function studies; Z11.59 Encounter for screening for other viral diseases; Z11.4 Encounter for screening for human immunodeficiency virus [HIV]
CPT/HCPCS: 71045; 74177; 80053; 80074; 80329; 81001; 83690; 83735; 84484; 85025; 85610; 86318; 86803; 87086; 87389; 87430; 87631; 93005; 96361; 96374; 96375; 99285; J2405; J7030; Q9967

== ENCOUNTER 2024-08-20 09:15 | Outpatient (CLI) | payer MEDICAID, SELFPAY ==
[2024-08-20 21:03] LABS: Coronavirus 19, PCR Not Detected (NotDetected); Human Rhinovirus Not Detected (NotDetected); Influenza A, PCR Not Detected (NotDetected); Influenza B, PCR Not Detected (NotDetected); Respiratory Syncytial Virus Not Detected (NotDetected)
== END 2024-08-20 23:59 | disposition home or self-care (01) ==
LOC: LAB.DROPOF 08-22 09:16
PROVIDERS: PCP Internal Medicine Adolescent Medicine; Visit Provider Nurse Practitioner Family
DX: R50.9 Fever, unspecified (principal)
CPT/HCPCS: 87631

== ENCOUNTER 2024-08-22 17:57 | Outpatient (CLI) | payer MEDICAID, SELFPAY ==
[2024-08-22 21:16] LABS: Coronavirus 19, PCR Not Detected (NotDetected); Human Rhinovirus Not Detected (NotDetected); Influenza A, PCR Not Detected (NotDetected); Influenza B, PCR Not Detected (NotDetected); Respiratory Syncytial Virus Not Detected (NotDetected)
== END 2024-08-22 23:59 ==
LOC: LAB.DROPOF 08-23 13:46
PROVIDERS: PCP Student in an Organized Health Care Education/Training Program; Visit Provider Student in an Organized Health Care Education/Training Program
DX: R50.9 Fever, unspecified (principal)
CPT/HCPCS: 87631

== ENCOUNTER 2024-09-01 08:08 | Outpatient (CLI) | payer MEDICAID, SELFPAY ==
[2024-09-01 08:30] LABS: Basophils % 0.2 % (0.1-2.0); Eosinophils % 0.5 % (0.1-12.0); Hematocrit 34.9 % (37.0-47.0); Hemoglobin 10.9 g/dL (12.2-16.2); Immature Granulocytes # 0.02 10^3uL; Immature Granulocytes % 0.3 %; Lymphocytes # 1.4 K/mm3 (0.7-4.5); Mean Corpuscular HGB Conc 31.2 g/dL (31.8-35.4); Mean Corpuscular Hemoglobin 27.4 pg (27.0-31.2); Mean Corpuscular Volume 87.7 fl (81-99); Mean Platelet Volume 9.4 fl (7.4-10.4); Monocytes # 0.6 K/mm3 (0.1-1.0); Monocytes % 9.7 % (1.7-9.3); Neutrophils # 4.4 K/mm3 (1.8-7.8); Neutrophils % 68.3 % (37.0-80.0); Nucleated Red Blood Cells # 0 10^3/uL; Nucleated Red Blood Cells % 0 %; Platelet Count 497 K/mm3 (142-424); Red Blood Count 3.98 M/mm3 (4.20-5.40); Red Cell Distribution Width 13.2 % (11.5-17.5); Red Cell Distribution Width-SD 42.5 fL; White Blood Count 6.4 K/mm3 (4.8-10.8)
[2024-09-01 08:45] LABS: Monoscreen (Rapid) Negative (Negative)
[2024-09-01 09:23] LABS: Chloride 108 mmol/L (98-107)
[2024-09-01 09:24] LABS: Albumin Level 4.2 g/dl (3.5-5.0); Potassium 4.2 mmoL/L (3.5-5.1); Sodium 141 mmol/L (136-145)
[2024-09-01 09:26] LABS: Alanine Aminotransferase 19 U/L (12-78); Anion Gap 10.2 mEq/L (5-15); Aspartate Amino Transferase 22 U/L (14-36); Blood Urea Nitrogen 10 mg/dl (7-17); Carbon Dioxide 27 mmol/L (22.0-30.0); Estimated Glomerular Filt Rate 117 ml/min (>60); GFR (African American) 142 ML/MIN (>60)
[2024-09-01 09:27] LABS: Albumin/Globulin Ratio 1.3 (1.1-1.8); Alkaline Phosphatase 116 U/L (38-126); Bilirubin,Total 0.5 mg/dl (0.2-1.3); Calcium 9.4 mg/dl (8.4-10.2); Globulin 3.2 g/dL (1.3-3.2); Glucose 103 mg/dl (74-100); Total Protein,Serum 7.4 g/dl (6.3-8.2)
[2024-09-02 13:15] LABS: EBV Ab VCA, IgG >600.0 U/mL (0.0-17.9); EBV Ab VCA, IgM <36.0 U/mL (0.0-35.9); EBV Nuclear Antigen Ab, IgG 24.5 U/mL (0.0-17.9)
== END 2024-09-01 23:59 | disposition home or self-care (01) ==
LOC: LAB 08:09
PROVIDERS: PCP Internal Medicine Adolescent Medicine; Visit Provider Physician Assistant
DX: J34.89 Other specified disorders of nose and nasal sinuses (principal); J35.8 Other chronic diseases of tonsils and adenoids; R79.89 Other specified abnormal findings of blood chemistry; R53.83 Other fatigue
CPT/HCPCS: 36415; 80053; 85025; 86318; 86664; 86665; 87070

== ENCOUNTER 2024-10-05 11:41 | Emergency (ER) | payer MEDICAID, SELFPAY ==
--- OUTSIDE RECORDS SUMMARY | 2012-10-05 10:50 | XMS_ITS | Continuity of Care Document ---
Author Organization [facility] Address [address] [place] [address] Phone Care Team Providers Care Trucker Hand Name Role Phone Jam Aj MD Unavailable Unavailable Medications Medication Instructions Dosage Effective Dates (start - stop) Status Comments Celebrex 200 mg Cap take 1 capsule (200M G) by oral route every day as needed 200 MG - Active Procedures Procedure Date Office/outpatient visit,est, mod 2012 Office/outpatient visit,est, mod 2012 Physical Tx excercises each 15 min Hot or cold packs therapy Physical Tx excercises each 15 min Physical Tx excercises each 15 min Physical Tx excercises each 15 min Hot or cold packs therapy Physical Tx excercises each 15 min Postop followup visit Physical Tx excercises each 15 min Hot or cold packs therapy Physical Tx excercises each 15 min Hot or cold packs therapy Physical Tx excercises each 15 min Hot or cold packs therapy Physical Tx excercises each 15 min Hot or cold packs therapy Physical therapy evaluation Physical Tx excercises each 15 min Hot or cold packs therapy Physical Tx excercises each 15 min Knee arthroscopy/repair ligament 2012 Knee arthscpy menisc rprmdl & lat Knee arthscpy mnsctmy medial or lat Knee arthroscopy/repair ligament 2012 [facility] Knee arthscpy mnsctmy medial or lat Office/outpatient visit,est, mod 2012 Knee Orthosis, Adjustable Knee Joints, P ositional Office/outpatient visit,est, mod 2012 MRI lwr extrm joint, w/o contrast Office/outpatient visit,est, mod 2012 Office/outpatient visit,est, mod 2010 Office/outpatient visit,new, mod 2010 X-ray exam of pelvis, 1-2 views 011 X-ray exam of hip, complete Advance Directives Directive Yes / No Effective Date File Name No Information Encounters Encounter Description Practice Location Reason(s) For Visit Diagnoses Date Provider Providers Copied on Encounter Office/outpat ient visit,est, mod [facility], [address] [place] [address], [id number], [phone] OIWDavid Do Cruciate Ligament Sprain/Strain , Knee-ACUTEAft ercare Following Surgery For Injury/Trauma 3 Jean Marie Polk. [address], [place], [id number] , [place]. tel: [phone] Office/outpat ient visit,est, [facility], [address], [place], [id number], [place] [phone] OIWK Hi Cruciate Ligament Sprain/Strain , Knee (ACL) (PCL)Aftercar e Following Surgery For Injury/Trauma 3 Jean Marie Polk. [address], [place], [id number] , [place]. tel: [phone] [facility], [address] [place] [address], [id number], tel:[phone] OIWK Hi No Information 3 Leah Ravinder. [address], [place], [id number] , [place]. tel: [phone] Referring Provider: Jam Aj, [address] [place], [address] . tel:[phone] [facility], [address] [place] [address], [id number], tel:[phone] OIWK Hi No Information 3 Leah Ravinder. [address], [place], [id number] , [place]. tel: [phone] Referring Provider: Jam Aj, [address] [place] [address], [id number] . tel:[phone] [facility], [address] [place] [address], [id number], tel:[phone] OIWK Hi No Information 3 Jean Marie Polk. [address], [place], [id number] , [place]. tel:[phone] [facility], [address] [place] [address], [id number], tel:[phone] OIWK Hi No Information 3 Leah Ravinder. [address], [place], [id number] , [place]. tel:[phone] Referring Provider: Jam Aj, [address] [place], [address] . tel:[phone] [facility], [address] [place] [address], [id number], tel:[phone] OIWK Hi No Information 3 Leah Ravinder. [address], [place], [id number] , [place]. tel:[phone] Referring Provider: Jam Aj, [address] [place], [address] . tel:[phone] [facility], [address] [place] [address], [id number], tel:[phone] [facility] No Information 3 Jean Marie Polk. [address], [place], [id number] , [place]. tel:[phone] Referring Provider: Jam Aj, [address] [place] [address], [id number] . tel:[phone] Office/outpat ient visit,[facility], [address] [place] [address], [id number], tel:[phone] NOLANK Hi No Information 3 Jean Marie Polk. [address], [place], [id number] , [place]. tel:[phone] [facility], [address] [place] [address], [id number], [place] tel:[phone] JAE Do No Information 3 Jean Marie Jam. [address] [place] [address], [id number] , [place]. tel:[phone] Referring Provider: Jam Aj, [address] [place] [address], [address] . tel:[phone] Office/outpat ient visit,est, [facility], [address] [place] [address], [id number], [place] tel:[phone] OIWK Hi No Information 3 Jean Marie Jasmineian. [address] [place] [address], [id number] , [place]. tel:[phone] [facility], [address] [place] [address], [id number], tel:[phone] OIWK Hi No Information 3 Jean Marie Jasmineian. [address], [place], [id number] , [place]. tel: [phone] Office/outpat ient visit,[facility], [address] [place] [address], [id number], [phone] JAE BEVERLY No Information 3 Miguel Foy. [address], [place], [place], [id number] , [place]. tel: [phone] Office/outpat ient visit,[facility], [address] [place] [address], [id number], tel:[phone] OIWK [address] 1 No Information 1 Jefferson Lagos. [address], [place], [id number] , . tel: [phone] Office/outpat ient visit,[facility], [address] [place] [address], [id number], tel:[phone] OIWDavid SHIRLEY PA No Information 1 Jefferson Lagos. [address], [place], [id number] , . tel: [phone] Referring Provider: Benji Aguilar, [address] [place] [address] [address], [place], [address]. Family History Family Member Type Diagnosis Age At Onset No Information Payers Payer name Insurance type Covered alliance party ID Apolinar mcneal(s) Bridget BS BL [id number] [employer] Social History Type Description Quantity Date Captured Comments Sex Female Smoking Status No Information Chief Complaint And Reason For Visit No Information Reason For Referral Reason For Referral No Information History Of Present Illness Encounter Date Complaint History Of Prese nt Illness No Information Functional Status Date Functional Assessmen t No Information Instructions Date Instruction Additional Infor mation No Information Assessments Type Assessment Date No Information Patient Care Teams Name Effective Dates (start - stop) Status Members No Information
--- NOTE | 2024-10-05 11:41 | ED_ITS ---
Discharge Plan Disposition Patient Disposition: Home, Self-Care Condition: Good Prescriptions Prescriptions: No Action Classic 28 mg iron- 800 mcg tablet PO DAILY Lacto no.61-Octtpt-QAV-larch 25B cell-25B cell-50 mg capsule PO cholecalciferol (vitamin D3) 50 mcg (2,000 unit) capsule 50 mcg PO DAILY albuterol sulfate [Ventolin HFA] 90 mcg/actuation HFA aerosol inhaler 1 inh inhalation QID PRN (Reason: shortness of breath or wheezing) Qty: 6.7 0RF cephalexin 500 mg capsule 500 mg PO BID Qty: 14 0RF nitrofurantoin macrocrystal 100 mg capsule 100 mg PO BID 5 Days Qty: 10 0RF Rx Instructions: must administer with a meal/food Activity Restrictions/Add. Instructions Additional Instructions/Restrictions: Please follow up with your primary care provider in 2-3 days. Please return to ED if your symptoms worsen, change in location, change in severity, new symptoms develop or if you become concerned for your health. Clinical Impressions Clinical Impression: Episodic lightheadedness, Anxiety Print Language Print Language: Tajik Discharge ED Provider: David Stapleton Adult HPI General Chief complaint: Dizziness Stated complaint: episode of dizzy/saw black spots/SOA. SXS resolved Time Seen by Provider: 10/05/24 11:41 History of Present Illness HPI narrative: Patient is a 29-year-old female with a history of anxiety, currently breast- feeding. She presents today due to concerns for shortness of breath and lightheadedness and chest pressure. She reports that she was at work sitting down when she began to feel lightheaded and have tunnel vision, she went to the bathroom to splash water on her face and that is when it became worse and she developed significant shortness of breath and chest pressure. EMS was called, but by the time they got there, her symptoms have resolved. She reports she feels somewhat anxious, but still having some slight chest pressure. She denies any recent fevers or infectious-like symptoms, but does report that she has been having the symptoms intermittently since she was sick with a virus about a year ago. She reports she has not been eating and drinking as well as she probably could be and she maybe does not dehydrated. Related Data Home Medications ?Medication ?Instructions ?Recorded ?Confirmed Lactobacillus 25 billion cap PO 06/07/24 08/22/24 cell-Bifido 25 billion blxa-[id number]-[id number] capsule cholecalciferol (vitamin D3) 50 50 mcg PO DAILY 08/22/24 mcg (2,000 unit) capsule vits no.126-ferrous fum tab PO DAILY 06/07/24 08/22/24 28 mg iron-folic acid 800 mcg tablet (Classic ) Previous Rx's ?Medication ?Instructions ?Recorded nitrofurantoin macrocrystal 100 mg 100 mg PO BID 5 day s #10 caps 08/15/24 capsule albuterol sulfate 90 mcg/actuation 1 inh inhalation QI D PRN shortness 08/22/24 aerosol inhaler (Ventolin HFA) of breath or wheezing # 6.7 grams cephalexin 500 mg capsule 500 mg PO BID #14 caps 08/22 Allergies Allergy/AdvReac Type Severity Reaction Status Date / Time amoxicillin Allergy Anaphylaxis Verified 08/22/24 17:28 dermabond Allergy Mild atopic Uncoded 08/22/24 17:28 dermatitis [facility] Disclaimer: The information contained in this section may have been updated after the patient was seen, as this information can be updated by other users. Medical History Viral syndrome Breast pain in female Viral upper respiratory tract infection with cough Postoperative visit Low vitamin D level Mother currently breast-feeding Request for sterilization Acute blood loss anemia (normal spontaneous vaginal delivery) 36 weeks gestation of premature rupture of membranes Maternal obesity affecting , antepartum Heartburn during Anemia affecting Depression affecting Vaginal discharge during Rubella non-immune status, antepartum GBS bacteriuria Initial urine culture positive for GBS. She will need abx in labor regardless of RV swab Nausea and vomiting during Constipation during PCOS (polycystic ovarian syndrome) Anxiety and depression Surgical History Status post bilateral salpingectomy 04/08/24 Hx of cholecystectomy Hx of appendectomy H/O gastric sleeve Family History Brother Adopted Mother Anemia Diabetes Hyperlipidemia Hypertension Father Substance abuse Thyroid disorder Sister Substance abuse Father Substance abuse Family/Other Substance abuse Grandmother Diabetes FHx: mental illness Other Coronary artery disease Social History Smoking Status: Never smoker alcohol intake: never substance use type: denies use current occupational status: employed Travel in the last 8 weeks?: None Have you lived/traveled outside [place] in past 30 days?: No Contact w/someone who lives/traveled outside [place] past 30 days?: No Exposure to someone with infectious disease in past 14 days?: No Do you have a fever (greater than 100.4 F or 38 C)?: No Have you tested positive for COVID-19?: No Exposed to someone with COVID-19 in past 14 days?: No Do you have a sore throat?: No Do you have a cough?: No Do you have any weakness?: No Do you have any diarrhea?: No Are you experiencing any unusual bleeding?: No Do you have any muscle aches/pain?: No Do you have any abdominal pain?: No Are you experiencing loss of taste or smell?: No Other Medical History Have you received the Flu Vaccine for this season: No Have you received the Pneumonia Vaccine: No ROS Obtained: Yes All systems reviewed & no additional complaints except as documented Physical Exam General General appearance: alert and in no apparent distress Head Head exam: atraumatic and normocephalic Eye Eye exam: Present PERRL and EOMI ENT ENT exam: Present normal oropharynx Neck Neck exam: Present full ROM and trachea midline Chest Chest inspection: Present symmetric chest wall rise Respiratory Respiratory exam: Present normal lung sounds bilaterally; Absent stridor Cardiovascular Cardiovascular exam: Present regular rate and normal rhythm Abdominal Exam Abdominal exam: Present soft; Absent distention or tenderness Extremities Exam Extremities exam: Present full ROM Neurological Exam Neurological exam: Present alert and oriented X3 Psychiatric Psychiatric exam: Present anxious Skin Skin exam: Present warm and dry Medical Decision Making Medical Records Screening: Per USPSTF and CDC recommendations, given the prevalence of disease in our region, it is our hospital?s policy to screen for HIV and viral Hepatitis for all patients aged 18 and over and those with ongoing risk factors. Hero Inquiry Pt receiving controlled substance: No Vital Signs: 10/05/24 11:43 Temperature 98.3 F Temperature Source Oral Pulse Rate [Right] 92 H Respiratory Rate 18 Blood Pressure [Right Arm] 142/92 H Blood Pressure Mean [Right Arm] 108 Blood Pressure Source [Right Arm] Automatic Cuff Blood Pressure Position [Right Arm] Sitting 02 Sat by Pulse Oximetry 99 Lab Data Lab Results 10/05/24 12:06: WBC 6.4, RBC 4.19 L, Hgb 11.8 L, Hct 36.5 L, MCV 87.1, MCH 28.2, MCHC 32.3, RDW 13.4, Plt Count 347, MPV 9.8, Neut % (Auto) 62.1, Lymph % (Auto) 26.6, [place] % (Auto) 9.6 H, Eos % (Auto) 1.3, Baso % (Auto) 0.2, Neut # (Auto) 4.0, Lymph # (Auto) 1.7, [place] # (Auto) 0.6, Eos # (Auto) 0.1, Baso # (Auto) 0.0, D-Dimer 0.41, Sodium 140, Potassium 4.2, Chloride 107, Carbon Dioxide 25, Anion Gap 12.2, BUN 16, Creatinine 0.60, Estimated Creat Clear 196, Estimated GFR 117, Est GFR ( Amer) 142, Glucose 95, Calcium 9.5, Magnesium 2.0, Total Bilirubin 0.6, AST 32, ALT 22, Alkaline Phosphatase 137 H, Troponin I < 0.01, Total Protein 7.7, Albumin 4.4, Globulin 3.3 H, Albumin/Globulin Ratio 1.3, Serum HCG, Qual Negative 10/05/24 12:06 10/05/24 12:06 Orders (Tests/Meds): ED MEDICATIONS Discontinued Medications Generic Name Dose Route Start Last Admin Trade Name Freq PRN Reason Stop Dose Admin Hydroxyzine Pamoate 50 mg 10/05/24 11:55 10/05/24 12:18 Hydroxyzine Pamoate 25mg Capsule PO 10/05/24 11:56 50 mg ONCE ONE Administration Lactated Ringer's 1,000 mls @ 999 mls/hr 10/05/24 11:55 10/05/24 12:18 Lactated Ringer's 1000 Ml Bag IV 10/05/24 12:55 999 mls/hr .Q1H1M ONE Administration ORDERS Category Date Time Status CBC w/Auto Diff [Complete Blood Count Auto Diff] Stat Lab 10/05/24 12:06 Completed CMP [Comprehensive Metabolic Panel] Stat Lab 10/05/24 12:06 Completed D-Dimer Stat Lab 10/05/24 12:06 Completed HCG Qualitative, Serum Stat Lab 10/05/24 12:06 Completed MAG [Magnesium] Stat Lab 10/05/24 12:06 Completed Trop I [Troponin I] Stat Lab 10/05/24 12:06 Completed Troponin I Q3H Lab 10/05/24 15:00 Ordered Troponin I Q3H Lab 10/05/24 18:00 Ordered ECG Data Tracing #1: I reviewed this ECG and interpreted as documented below: Patient's EKG was independently reviewed by me, and interpreted to be significant for NSR with no acute ST-segment changes. Medical Decision Narrative: In summary, this 29-year-old female presents to the emergency department today with anxiety chest pain shortness of breath. On initial evaluation patient is afebrile, hemodynamically stable and in no acute distress but on exam is well- perfused with full pulses brisk capillary refill. Heart is regular rate and rhythm lung sounds clear to station bilaterally. Based on her clinical history, it is most likely that she had a panic attack, or anxiety. It is possible she had a temporary metabolic alkalosis as well given the hyperventilation, versus a PE. I have very low suspicion for pulmonary embolism or ACS, but given that she is recently and is breast-feeding, is hypercoagulable state, will screen with a D-dimer, and troponins.. Based on these concerns, I ordered CBC CMP D-dimer troponin. LR bolus. On reassessment, reviewed hematologic labs demonstrates no significant lecture light derangement negative D-dimer negative troponins, have high suspicion that this was orthostatic hypotension versus anxiety. Feeling better now has remained hemodynamically stable. Ambulatory without issue in the emergency department. Strict precautions discussed all questions answered metabolic plan and discharge At this time it was felt that the patient was safe to be discharged home. The patient was in agreement with this plan. The patient was given strict return precautions prior to being discharged from the emergency department. Critical Care Critical Care Time Critical Care Time: No Total Time Total Critical Care Time: 0
[2024-10-05 11:43] VITALS: BP 142/92; PULSE 92; RESP 18; TEMP 36.8; O2SAT 99; BMI 33.3
--- NOTE | 2024-10-05 11:44 | PC.NURSE ---
fsbs by stephanie fuentes was 119
--- NOTE | 2024-10-05 12:15 | ECG_ITS ---
APPROVED REPORT Exam: Resting ECG HR:76 bpm ECG Measurements Heart Rate 76 AXES GA 149 P 63 QRSd 90 QRS 79 QT 366 T 76 QTc 396 Conclusion SINUS RHYTHM NORMAL ECG UNCONFIRMED REPORT Electronically signed by : David Stapleton, 10/05/2024 17:01:17
[2024-10-05 12:18] LABS: Hematocrit 36.5 % (37.0-47.0); Hemoglobin 11.8 g/dL (12.2-16.2); Immature Granulocytes % 0.2 %; Mean Corpuscular HGB Conc 32.3 g/dL (31.8-35.4); Mean Corpuscular Hemoglobin 28.2 pg (27.0-31.2); Mean Corpuscular Volume 87.1 fl (81-99); Nucleated Red Blood Cells % 0 %; Platelet Count 347 K/mm3 (142-424); Red Blood Count 4.19 M/mm3 (4.20-5.40); Red Cell Distribution Width-SD 42.6 fL; White Blood Count 6.4 K/mm3 (4.8-10.8)
[2024-10-05] MEDS: LACTATED RINGERS 1000ML 1,000 ML 999 ML IV (12:18)
--- NOTE | 2024-10-05 12:20 | PC.NURSE ---
Patient administered medications verified via bracelet. Also confirmed allergies.
[2024-10-05 12:36] LABS: Alanine Aminotransferase 22 U/L (12-78); Albumin Level 4.4 g/dl (3.5-5.0); Albumin/Globulin Ratio 1.3 (1.1-1.8); Alkaline Phosphatase 137 U/L (38-126); Anion Gap 12.2 mEq/L (5-15); Aspartate Amino Transferase 32 U/L (14-36); Bilirubin,Total 0.6 mg/dl (0.2-1.3); Blood Urea Nitrogen 16 mg/dl (7-17); Calcium 9.5 mg/dl (8.4-10.2); Carbon Dioxide 25 mmol/L (22.0-30.0); Chloride 107 mmol/L (98-107); Creatinine Clearance Estimated 196 mL/min (50-200); Creatinine,Serum 0.60 mg/dl (0.52-1.04); Estimated Glomerular Filt Rate 117 ml/min (>60); GFR (African American) 142 ML/MIN (>60); Globulin 3.3 g/dL (1.3-3.2); Glucose 95 mg/dl (74-100); Magnesium 2.0 mg/dl (1.6-2.3); Potassium 4.2 mmoL/L (3.5-5.1); Sodium 140 mmol/L (136-145); Total Protein,Serum 7.7 g/dl (6.3-8.2)
[2024-10-05 12:39] LABS: HCG Qualitative, Serum Negative (Negative)
[2024-10-05 12:41] LABS: D-Dimer 0.41 ug/mL (0.0-0.5)
[2024-10-05 12:53] LABS: Troponin I < 0.01 ng/ml (0.00-0.034)
[2024-10-05 14:36] VITALS: BP 123/78; PULSE 78; RESP 18; TEMP 36.6; O2SAT 98
== END 2024-10-05 14:36 | disposition home or self-care (01) ==
PROVIDERS: Emergency Provider Emergency Medicine; PCP Internal Medicine Adolescent Medicine
DX: R42 Dizziness and giddiness (principal); F41.9 Anxiety disorder, unspecified
CPT/HCPCS: 80053; 83735; 84484; 84703; 85025; 85378; 93005; 96360; 99285; J7120

== ENCOUNTER 2024-12-14 09:00 | Outpatient (CLI) | payer MEDICAID, SELFPAY ==
[2024-12-14 14:52] LABS: Coronavirus 19, PCR Not Detected (NotDetected); Influenza A, PCR Not Detected (NotDetected); Influenza B, PCR Not Detected (NotDetected)
== END 2024-12-14 23:59 ==
LOC: LAB.DROPOF 12-15 09:36
PROVIDERS: PCP Nurse Practitioner; Visit Provider Nurse Practitioner
DX: J06.9 Acute upper respiratory infection, unspecified (principal)
CPT/HCPCS: 87631